=== PATIENT | male | born 1975 | race Caucasian/White ===

== ENCOUNTER → 2021-02-15 11:51 | Outpatient (BNVA) | payer OTHER, SELFPAY | PROVIDERS: PCP Internal Medicine; Referring Provider Internal Medicine; Visit Provider Surgery | DX: Z01.818 Encounter for other preprocedural examination (principal); L72.3 Sebaceous cyst; F17.200 Nicotine dependence, unspecified, uncomplicated; Z71.6 Tobacco abuse counseling | CPT/HCPCS: 99202 ==

== ENCOUNTER 2021-03-02 07:45 | Outpatient (REF) | payer OTHER, SELFPAY ==
[2021-03-02 07:51] VITALS: BP 117/68; PULSE 65; RESP 16; TEMP 36.4; O2SAT 98
[2021-03-02 07:52] VITALS: BMI 25.0
--- NOTE | 2021-03-02 07:59 | MHC.SHP ---
Pre-Procedural Eval Section A The patient is an INPATIENT: No Changes since office visit: Yes Patient answered all questions; No Cold of Flu in the past 2 weeks, No New Medical Problems and No Changes in Medication The History & Physical has been completed within 30 days and I have reviewed it.: Yes Section B Chief Complaint: Sebaceous cyst Allergies: Allergies Allergy/AdvReac Type Severity Reaction Status Date / Time No Known Allergies Allergy Mild N/A Verified 02/15/21 11:53 Plan Diagnosis/Plan: Unchanged I have reviewed the history and physical and performed a pertinent physical examination on my patient. No changes have occurred unless specified.
[2021-03-02 08:25] VITALS: BP 125/62; PULSE 63; RESP 16; O2SAT 98
--- NOTE | 2021-03-02 09:00 | W.PM.OPN ---
Operative Note Operative Note Date of Service: 03/02/21 Narrative: Preoperative diagnosis: Sebaceous cyst posterior left shoulder Postoperative diagnosis: Same Procedure: Excision is sebaceous cyst posterior left shoulder Surgeon: Mandeep Connell MD Sifting Operator: No physician Anesthesia: Local Indications for procedure: 45-year-old male presenting with an enlarging cyst of the posterior left shoulder Operative findings: None infected 2 cm sebaceous cyst of the posterior left shoulder Specimen: Sebaceous cyst posterior left shoulder Estimated blood loss: 2 mL Complications: None Procedure details: Patient was brought to the minor surgery suite placed in a prone position. After assuring the site of surgery and informed consent the patient's left shoulder was prepped with Betadine and draped in a sterile fashion. Local anesthesia consisting of 1% lidocaine with epinephrine was infiltrated circumferentially in a transverse fashion around the sebaceous cyst in the left posterior shoulder elliptical incision was then created with a scalpel carried out through subcutaneous tissue. The incision was carried down along the cyst wall in the cyst was completely excised. Cyst was sent to pathology for further examination. After assuring adequate hemostasis with light pressure the skin was reapproximated using interrupted 4-0 nylon sutures. Sterile dressings consisting of 3 x 3 gauze and Tegaderm were then applied. The patient tolerated the procedure well. Sponge, instrument, and needle counts were correct. The patient was discharged to home in stable condition.
== END 2021-03-02 07:46 | disposition home or self-care (01) ==
LOC: HO.MS 07:45
PROVIDERS: PCP Internal Medicine; Visit Provider Surgery
PROC: (CPT 11402; principal; 2021-03-02 08:00)
DX: L72.3 Sebaceous cyst (principal)
CPT/HCPCS: 11402; 88304

== ENCOUNTER 2022-01-17 15:35 | Outpatient (REF) | payer OTHER, SELFPAY ==
[2022-01-17 16:20] LABS: COVID-19 Test Negative (Negative); IDNOW Serial# 55D5AD1C
== END 2022-01-17 15:36 | disposition home or self-care (01) ==
LOC: HO.LAB 15:35
PROVIDERS: Visit Provider Internal Medicine
DX: Z20.822 Contact with and (suspected) exposure to COVID-19 (principal)
CPT/HCPCS: 87635; C9803

== ENCOUNTER 2024-08-31 02:30 | Emergency (ER) | payer OTHER, SELFPAY ==
[2024-08-31 02:42] VITALS: BP 121/79; PULSE 78; RESP 18; TEMP 36.3; O2SAT 99; BMI 23.3
[2024-08-31] MEDS: Acetaminophen 325 MG TABLET 975 MG PO (02:53)
--- NOTE | 2024-08-31 07:20 | ED.DENTAL ---
HPI - Dental/Oral General Chief complaint: Dental/Oral Stated complaint: broken tooth Time Seen by Provider: 08/31/24 07:08 Source: patient Mode of arrival: ambulatory Limitations: no limitations History of Present Illness ED Provider: CHRISSIE PAEZ PA-C HPI Narrative: 48-year-old male presents to the ED today for evaluation of dental pain x3 days. Patient reports broken tooth to left upper tooth (#10). He does not recall how he broke the tooth however since this time, he endorses constant pain to the area. Pain is radiating to his left ear. He has been taking Motrin at home with minimal relief. States he has not followed with a dentist in some time. Denies any drainage from the tooth. Denies fever, chills, jaw pain/ swelling. Denies known trauma. MD Complaint: tooth pain Related Data Previous Rx's ?Medication ?Instructions ?Recorded amoxicillin 875 mg-potassium 1 tab PO BID 7 days #14 tabs 08/31/24 clavulanate 125 mg tablet tramadol 50 mg tablet 50 mg PO Q8H PRN pain (scale score 08/31/24 4-6) #7 tabs Allergies Allergy/AdvReac Type Severity Reaction Status Date / Time No Known Allergies Allergy Mild N/A Verified 08/31/24 02:47 Review of Systems Review of Systems: Constitutional: No fever, chills, fatigue, night sweats, weight changes ENT/Mouth: No ear pain, hearing loss, nasal congestion, sinus pain, rhinorrhea, sore throat, +dental pain Eyes: No eye pain, swelling, redness, vision changes, discharge Cardio: No chest pain, palpitations, NYE, orthopnea, peripheral edema Pulm: No SOB, cough, sputum, wheezing, dyspnea, hemoptysis GI: No nausea, vomiting, hematemesis, abdominal pain, diarrhea, constipation, hematochezia, melena : No irregular bleeding, dysuria, frequency, urgency, hesitancy, hematuria, flank pain, urinary flow changes, urinary incontinence or retention MSK: No back pain, neck pain, joint pain, myalgias Skin: No lesions, rashes Neuro: No weakness, numbness, paresthesias, LOC, dizziness, headache Psych: No anxiety/panic, depression, SI/HI, AH/VH All other systems reviewed and are negative. [facility] Past Medical History Attestation statement: The following information was validated with the patient. Source: old records reviewed and nursing notes reviewed Medical History History of wrist sprain Surgical History History of appendectomy History of tonsillectomy Social History Social History Alcohol intake: never Advance Directives: No Advance Directives Information Provided: Yes Do you have a plan to hurt others: No Plan Physical Exam Vital Signs: Vital Signs: Last Vital Signs Temp 97.4 F 08/31/24 02:42 Pulse 78 08/31/24 02:42 Resp 18 08/31/24 02:42 BP 121/79 08/31/24 02:42 Pulse Ox 99 08/31/24 02:42 O2 Del Method Room Air 08/31/24 02:42 BMI result Body Mass Index 23.3 Vital signs stable, afebrile General: Well appearing, in no acute distress. Skin: Warm, dry, intact. No rashes or lesions. Head: Normocephalic, atraumatic. EENT: Hearing is intact b/l. B/l EACs and TMs intact. Conjunctiva clear. PERRLA. Moist mucous membranes.? > No facial edema. Tongue and lips wnl. multiple dental caries and poor dentition. left upper (#10) with localized periapical swelling to the buccal ginginva. No pointing. No active bleeding/ discharge. TTP. No palpable fluctuance. No edema to buccal mucosa. Posterior oropharynx without erythema/edema. Uvula midline. Controlling secretions and speaking in complete sentences. No submandublar or submental LAD. no anterior neck swelling. Cardiac: Chest wall symmetric. RRR Lungs: Normal respiratory effort without accessory muscle use Neuro: AOx3. Normal speech. Ambulating with steady gait. Psych: Appropriate mood and affect. Responds appropriately to questions. Course Course Course Narrative: Patient noted to have dental infection. There is no evidence of abscess that warrants drainage at this time. Will treat patient's pain and patient will be discharged home on Augmentin to ensure there is no worsening infection for follow-up with dentist. Patient advised to follow up with dentist this week. A referral has been provided. Patient has remained stable throughout ED visit today. I discussed worrisome signs and symptoms and when to return to the ED. All questions answered at this time. Patient is agreeable with disposition and stable for discharge. Medications Administered Discontinued Medications Generic Name Dose Route Start Last Admin Trade Name Guy PRN Reason Stop Dose Admin Acetaminophen 975 mg 08/31/24 02:48 08/31/24 02:53 Acetaminophen 325 Mg Tablet PO 08/31/24 02:49 975 mg ONCE ONE Administration Medical Decision Making Medical Decision Making MDM Narrative: 48-year-old male presents to the ED today for evaluation of dental pain x3 days. Vital signs stable, afebrile. Moist mucous membranes.?No facial edema. Tongue and lips wnl. multiple dental caries and poor dentition. left upper (#10) with localized periapical swelling to the buccal ginginva. No pointing. No active bleeding/ discharge. TTP. No palpable fluctuance. No edema to buccal mucosa. Posterior oropharynx without erythema/edema. Uvula midline. Controlling secretions and speaking in complete sentences. No submandublar or submental LAD. no anterior neck swelling. Differential includes dental/ periapical abscess/infection. Unlikely mono, herpes, sialadenitis, sialolithiasis, [employer], retropharyngeal abscess, deep neck infection, osteomyelitis, facial cellulitis/ abscess, lymphoma, ludwigs angina. Plan for pain control and discharge home with antibiotics and dentist follow up. Differential Diagnosis Differential Diagnoses: The differential diagnosis associated with the presentation includes as above. Admission/Observation Not indicated. External Record Review External record reviewed: Inpatient record Tests considered The following testing was considered but not selected: I considered obtaining a CT of the soft tissues neck however these is no evidence of ludwigs angina or concern for deep tissue infection. Not warranted at this time. Prescription Management I considered prescription management with: Pain Medication (Tramadol) and Antibiotic (Augmentin) Social Determinants Patient?s care significantly limited by Social Determinants of Health including: Other Social Determinant of Health Critical Care Time Critical Care Time Critical Care Time: No Discharge Plan Discharge Clinical Impression: Dental caries, Dental infection Patient Disposition: Home, Self-Care Instructions: Tooth Extraction (DC) Additional Instructions: You were evaluated in ED today for dental pain. You have a dental infection. Augmentin is an antibiotic that has been sent to your pharmacy for treatment. Take this as prescribed and do not skip any doses. Take this to completion or the infection may persist or worsen. On Augmentin, softer bowel movements are to be expected. Call your provider if you move your bowels more than 4 times a day, your bowel movements are almost all liquid, or you get a rash.? Take tylenol/ motrin at home as needed for pain. Tramadol is a pain medication that has been sent to your pharmacy for you to take for break-through pain. Use this with caution. YOU NEED TO FOLLOW UP WITH A DENTIST. You have been provided with a referral to [facility]. They are currently taking new clients. Call them to make an appointment. They will not call you. Return with new or worsening symptoms. In the case of an emergency call [phone]. [facility]: [phone] [address] [facility] [address] Prescriptions: New amoxicillin-pot clavulanate 875-125 mg tablet 1 tab PO BID 7 Days Qty: 14 0RF tramadol 50 mg tablet 50 mg PO Q8H PRN (Reason: pain (scale score 4-6)) Qty: 7 0RF Referrals: Jania Vo MD [Primary Care Provider] - Print Language: French
[2024-08-31] MEDS: Ketorolac Tromethamine 30 MG/ML VIAL IM (07:44)
[2024-08-31 08:00] VITALS: BP 121/79; PULSE 78; RESP 18; TEMP 36.3; O2SAT 99
== END 2024-08-31 08:01 | disposition home or self-care (01) ==
PROVIDERS: Emergency Provider Emergency Medicine; PCP Internal Medicine
DX: K03.81 Cracked tooth (principal); K04.7 Periapical abscess without sinus
CPT/HCPCS: 96372; 99283; 99284; J1885

== ENCOUNTER 2024-09-06 22:45 | Emergency (ER) | payer OTHER, SELFPAY ==
[2024-09-06 23:22] VITALS: BP 121/77; PULSE 87; RESP 20; TEMP 37; O2SAT 99; BMI 23.6
--- NOTE | 2024-09-07 02:45 | ED.GENADULT ---
HPI - General Adult General Chief complaint: Dental/Oral Stated complaint: tooth pain Time Seen by Provider: 09/07/24 02:44 History of Present Illness ED Provider: Ben BARRERA narrative: The patient has been having problems with dental pain since his tooth #9 Broke about 2 weeks ago. He was here the other day and received a prescription for Augmentin. He has finished that prescription and has not yet seen a dentist. He has ongoing pain. No fever. Related Data Previous Rx's ?Medication ?Instructions ?Recorded amoxicillin 875 mg-potassium 1 tab PO BID 7 days #14 tabs 08/31/24 clavulanate 125 mg tablet tramadol 50 mg tablet 50 mg PO Q8H PRN pain (scale score 08/31/24 4-6) #7 tabs amoxicillin 875 mg-potassium 1 tab PO BID #20 tabs 09/07/24 clavulanate 125 mg tablet ibuprofen 400 mg tablet 400 mg PO Q6H PRN pain #14 tabs 09/07/24 tramadol 50 mg tablet 50 mg PO Q6H PRN pain #10 tabs 09/07/24 Allergies Allergy/AdvReac Type Severity Reaction Status Date / Time No Known Allergies Allergy Mild N/A Verified 09/06/24 23:24 Review of Systems Review of Systems: Yes all other systems are reviewed and are negative PMFSH Past Medical History Medical History History of wrist sprain Surgical History History of appendectomy History of tonsillectomy Social History Social History Alcohol intake: never Advance Directives: No Advance Directives Information Provided: Yes Do you have a plan to hurt others: No Plan Physical Exam ED Vital Signs: Vital Signs - 24 hr 09/06/24 23:22 Temperature 98.6 F Pulse Rate 87 Respiratory Rate 20 Blood Pressure 121/77 Pulse Oximetry 99 Oxygen Delivery Method Room Air BMI result Body Mass Index 23.6 Const Other: The patient is awake and alert. He does not seem in acute distress. HENMT Other: The face is symmetrical. There is no soft tissue swelling to the face. There is no trismus. The patient has a broken tooth 9.. There is no significant soft tissue swelling in the gingiva above the 2s. No drainable collection. Eyes General: appearance normal, both eyes and all related structures Neck Other: No cervical adenopathy, good range of motion of neck. Resp Effort & Inspection: normal respiratory effort Auscultation: clear to auscultation bilaterally Cardio Rate: regular rate Rhythm: regular rhythm Heart sounds: S1 normal heart sound present and S2 normal heart sound present Skin Other: skin is dry and unremarkable. Neuro Other: The patient is awake and alert with a normal mental status. Cranial nerves are intact. He moves his extremities normally. He is neurologically intact Extrem Other: no peripheral edema Medications Administered Discontinued Medications Generic Name Dose Route Start Last Admin Trade Name Freq PRN Reason Stop Dose Admin Amoxicillin/Clavulanate Potassium 875 mg 09/07/24 02:49 09/07/24 03:01 Amoxicillin/Potassium Clav 875 Mg Tablet PO 09/07/24 02:50 875 mg ONCE ONE Administration Ketorolac Tromethamine 30 mg 09/07/24 02:49 09/07/24 03:01 Ketorolac Tromethamine 30 Mg/Ml Vial IM 09/07/24 02:50 30 mg ONCE ONE Administration Medical Decision Making Medical Decision Making MDM Narrative: the patient is a 48-year-old male with a painful broken tooth #9. he will be placed on a course of Augmentin. Prescriptions for pain have been sent for ibuprofen and tramadol as well. He was advised he needs to see a dentist. Discharge Plan Discharge Clinical Impression: Pain, dental Patient Disposition: Home, Self-Care Instructions: Toothache (ED) Additional Instructions: I would continue taking the antibiotic. I have sent a new prescription to your pharmacy. Please take this 2 times a day. The most important thing you need to do is see a dentist. Only a dentist can give you a well-informed opinion about what to do next. You may use 2 extra-strength acetaminophen (Tylenol) up to 3 times a day as needed for pain. I have also sent a prescription for ibuprofen that you may use every 6 hours. In addition I have sent a prescription for pain medication called tramadol that you may use only when you are not driving or operating machinery or doing anything else that requires your full attention. Again the most important thing you need to do is try to see a dentist. Return to the emergency room if you develop fevers or other concerning symptoms. Prescriptions: New amoxicillin-pot clavulanate 875-125 mg tablet 1 tab PO BID Qty: 20 0RF ibuprofen 400 mg tablet 400 mg PO Q6H PRN (Reason: pain) Qty: 14 0RF tramadol 50 mg tablet 50 mg PO Q6H PRN (Reason: pain) Qty: 10 0RF No Action amoxicillin-pot clavulanate 875-125 mg tablet 1 tab PO BID 7 Days Qty: 14 0RF tramadol 50 mg tablet 50 mg PO Q8H PRN (Reason: pain (scale score 4-6)) Qty: 7 0RF Interventions: ED Discharge Assessment Last Done: 09/07/24 03:13 Discharge Date/Time: 09/07/24 03:14 Print Language: Azerbaijani
[2024-09-07] MEDS: Ketorolac Tromethamine 30 MG/ML VIAL IM (03:01)
[2024-09-07] MEDS: Amoxicillin/Potassium Clav 875 MG TABLET PO (03:01)
[2024-09-07 03:06] VITALS: BP 133/61; PULSE 73; RESP 16; TEMP 36.9; O2SAT 100
[2024-09-07 03:13] VITALS: BP 133/61; PULSE 73; RESP 16; TEMP 36.9; O2SAT 100
== END 2024-09-07 03:14 | disposition home or self-care (01) ==
PROVIDERS: Emergency Provider Emergency Medicine; PCP Internal Medicine
DX: K08.89 Other specified disorders of teeth and supporting structures (principal)
CPT/HCPCS: 96372; 99283; 99284; J1885

== ENCOUNTER → 2024-10-27 00:13 | Outpatient (BNV) | payer OTHER, SELFPAY | PROVIDERS: PCP Internal Medicine; Visit Provider Radiology Diagnostic Radiology | DX: M25.511 Pain in right shoulder (principal) | CPT/HCPCS: 73030 ==

== ENCOUNTER 2024-10-27 23:46 | Emergency (ER) | payer OTHER, SELFPAY ==
--- NOTE | ~2024-10-27 | XR_ITS ---
CLINICAL HISTORY: right shoulder pain limited movement 3 view right shoulder Comparison: None Findings: No fractures or dislocations. No significant arthritic change. No erosions. No radiopaque foreign body. IMPRESSION: 1. No acute findings This document has been electronically signed by: Dominic Frias MD on 10/28/2024 01:08:00
[2024-10-27 23:51] VITALS: BP 96/43; PULSE 74; RESP 16; TEMP 36.8; O2SAT 97; BMI 22.1
--- NOTE | 2024-10-28 03:10 | ED.EXTPRO ---
HPI - Extremity Problem General Chief complaint: Extremity Problem Stated complaint: right shoulder pain Time Seen by Provider: 10/28/24 02:48 Source: patient Limitations: no limitations History of Present Illness ED Provider: Kaur Dunaway PA-C HPI Narrative: 48-year-old male presents with right shoulder pain. Patient states he fell on the ice last week, he has had ongoing discomfort since. Pain worse with range of motion in particular performing lateral raise. Related Data Previous Rx's ?Medication ?Instructions ?Recorded amoxicillin 875 mg-potassium 1 tab PO BID 7 days #14 tabs 08/31/24 clavulanate 125 mg tablet tramadol 50 mg tablet 50 mg PO Q8H PRN pain (scale score 08/31/24 4-6) #7 tabs amoxicillin 875 mg-potassium 1 tab PO BID #20 tabs 09/07/24 clavulanate 125 mg tablet ibuprofen 400 mg tablet 400 mg PO Q6H PRN pain #14 tabs 09/07/24 tramadol 50 mg tablet 50 mg PO Q6H PRN pain #10 tabs 09/07/24 meloxicam 15 mg tablet 15 mg PO DAILY #7 tabs 10/28/24 Allergies Allergy/AdvReac Type Severity Reaction Status Date / Time No Known Allergies Allergy Mild N/A Verified 10/27/24 23:55 Review of Systems Review of Systems: Yes all other systems are reviewed and are negative Constitutional: Constitutional: Denies fatigue and Denies fever(s) Cardiovascular: Cardiovascular: Denies chest pain Musculoskeletal: Musculoskeletal: Reports arthralgias and Denies joint swelling Endocrine: Endocrine: Denies fatigue PMFSH Past Medical History Attestation statement: The following information was validated with the patient. Medical History History of wrist sprain Surgical History History of appendectomy History of tonsillectomy Social History Social History Alcohol intake: never Advance Directives: No Advance Directives Information Provided: Yes Do you have a plan to hurt others: No Plan Physical Exam Vital Signs: Vital Signs: Last Vital Signs Temp 98.2 F 10/27/24 23:51 Pulse 74 10/27/24 23:51 Resp 16 10/27/24 23:51 BP 96/43 L 10/27/24 23:51 Pulse Ox 97 10/27/24 23:51 O2 Del Method Room Air 10/27/24 23:51 BMI result Body Mass Index 22.1 Const: Other: Alert appears older than stated age Orientation/consciousness: patient oriented x3 Resp: Effort & Inspection: normal respiratory effort Cardio: Other: Normal peripheral perfusion Skin: Other: Warm dry no rash Neuro: General: patient oriented x3, no focal motor deficits and CN's II-XI intact bilaterally Extrem: Other: Full range of motion no deformity Psych: Other: Cooperative Medical Decision Making Medical Decision Making MDM Narrative: 48-year-old male presents with right shoulder pain. Patient states he fell on the ice last week, he has had ongoing discomfort since. Pain worse with range of motion in particular performing lateral raise. No chronic issues History: Per patient I have considered the following differential diagnoses: Fracture, dislocation, sprain Plan: X-ray obtained, unremarkable. We will send with home Care instructions. I have independently reviewed the following tests: X-ray right shoulder:Comparison: None Findings: No fractures or dislocations. No significant arthritic change. No erosions. No radiopaque foreign body. IMPRESSION: 1. No acute findings This document has been electronically signed by: Dominic Frias MD on 10/28/2024 01:08:00 Discharge Plan Discharge Clinical Impression: Other sprain of right shoulder joint, initial encounter Patient Disposition: Home, Self-Care Instructions: Shoulder Sprain (ED) Additional Instructions: The x-ray was normal of the shoulder, meeting there was no fracture or dislocation. You have a sprain. See home care instructions. Use the meloxicam as needed for discomfort. Take it with food. Follow up with your primary care provider as needed. Prescriptions: New meloxicam 15 mg tablet 15 mg PO DAILY Qty: 7 0RF No Action amoxicillin-pot clavulanate 875-125 mg tablet 1 tab PO BID 7 Days Qty: 14 0RF tramadol 50 mg tablet 50 mg PO Q8H PRN (Reason: pain (scale score 4-6)) Qty: 7 0RF amoxicillin-pot clavulanate 875-125 mg tablet 1 tab PO BID Qty: 20 0RF ibuprofen 400 mg tablet 400 mg PO Q6H PRN (Reason: pain) Qty: 14 0RF tramadol 50 mg tablet 50 mg PO Q6H PRN (Reason: pain) Qty: 10 0RF Stand Alone Forms: Work/School Release Print Language: Hong Konger
[2024-10-28] MEDS: Ibuprofen 600 MG TABLET PO (03:36)
[2024-10-28] MEDS: Acetaminophen 325 MG TABLET 975 MG PO (03:37)
[2024-10-28 03:41] VITALS: BP 89/44; PULSE 60; RESP 16; TEMP 36.8; O2SAT 97
[2024-10-28 03:43] VITALS: BP 89/44; PULSE 60; RESP 16; TEMP 36.8; O2SAT 97
== END 2024-10-28 03:45 | disposition home or self-care (01) ==
PROVIDERS: Emergency Provider Emergency Medicine; PCP Internal Medicine
DX: S43.401A Unspecified sprain of right shoulder joint, initial encounter (principal); W00.0XXA Fall on same level due to ice and snow, initial encounter; M25.511 Pain in right shoulder; Y93.9 Activity, unspecified; Y92.9 Unspecified place or not applicable; Y99.9 Unspecified external cause status
CPT/HCPCS: 73030; 99283; 99284

== ENCOUNTER 2024-12-22 15:42 | Inpatient (IN) | payer OTHER, SELFPAY ==
--- NOTE | ~2024-12-22 | XR_ITS ---
EXAMINATION: XR CHEST CLINICAL INFORMATION: elevated WBC count COMPARISON: None available. TECHNIQUE: Frontal view of the chest was obtained. FINDINGS: Patchy opacity right upper hemithorax. No pleural effusion. No pneumothorax. No hyperinflation. Cardiomediastinal silhouette size is normal. Osseous structures are intact. XR/XR chest 1V IMPRESSION: Pneumonia, right upper lung lobe. Recommend follow-up until resolution, underlying lesion/malignancy cannot be excluded. Electronically signed by: Shon Worley MD 12/24/2024 08:04 AM EDT
[2024-12-22 15:46] VITALS: BP 120/73; PULSE 100; RESP 19; TEMP 36.6; O2SAT 97; BMI 21.3
--- NOTE | 2024-12-22 15:46 | ED.GENADULT ---
HPI - General Adult General Chief complaint: Psychiatric Symptoms Stated complaint: mental health fears for safety Time Seen by Provider: 12/22/24 16:15 Source: patient Limitations: no limitations History of Present Illness ED Provider: Kaur Dunaway PA-C HPI narrative: 49-year-old male with a history of polysubstance abuse, anxiety and depression, Who presents with HI. Patient states he has been having paranoid thoughts of people following him . Patient was currently homeless, he has been hiding in warehouses and in the encarnacion . When asked if there was someone specific that he would harm, he states no, I kind a just want to hurt someone so I get arrested . Patient admits to using crack and heroin today. Patient also abuses alcohol, he drank 7 nips of fireball earlier today, he drinks on a daily basis. The patient has experienced alcohol withdrawal in the past with seizure activity. Denies SI. Related Data Home Medications ?Medication ?Instructions ?Recorded ?Confirmed methadone 10 mg/mL oral concentrate 90 mg PO DAILY 12/22/24 12/22/24 Allergies Allergy/AdvReac Type Severity Reaction Status Date / Time No Known Allergies Allergy Mild N/A Verified 12/22/24 15:48 Review of Systems Review of Systems: Yes all other systems are reviewed and are negative Constitutional: Constitutional: Denies fatigue and Denies fever(s) Cardiovascular: Cardiovascular: Denies chest pain Respiratory: Respiratory: Denies cough Gastrointestinal: Gastrointestinal: Denies abdominal pain Psychiatric: Psychiatric: Reports paranoia and Reports homicidal ideation Endocrine: Endocrine: Denies fatigue PMFSH Past Medical History Attestation statement: The following information was validated with the patient. Medical History History of wrist sprain Surgical History History of appendectomy History of tonsillectomy Social History Social History Alcohol intake: never Substance Use Type: Marijuana Advance Directives: No Advance Directives Information Provided: Yes Do you have a plan to hurt others: No Plan Physical Exam ED Vital Signs: Vital Signs - 24 hr 12/22/24 15:46 Temperature 98 F Pulse Rate 100 Respiratory Rate 19 Blood Pressure 120/73 Pulse Oximetry 97 Oxygen Delivery Method Room Air BMI result Body Mass Index 21.3 Const Other: Alert Orientation/consciousness: patient oriented x3 Resp Effort & Inspection: normal respiratory effort Cardio Other: normal peripheral perfusion Skin Other: warm dry no rash Neuro General: patient oriented x3, gait normal, no focal motor deficits and CN's II-XI intact bilaterally Psych Other: appears nervous, but is cooperative in the emergency department Course Course Course Narrative: RME, this is a rapid medical exam performed by José Miguel Hernandez please refer to primary provider for complete H&P- 49 year old male presents for evaluation of paranoia and polysubstance abuse, He reports that he has been homeless for the last 3 or 4 months. He is not currently taking any meds. Denies SI. Plan for medical clearance and care team evaluation. Medications Administered Discontinued Medications Generic Name Dose Route Start Last Admin Trade Name Freq PRN Reason Stop Dose Admin Lorazepam 2 mg 12/22/24 15:55 12/22/24 16:18 Lorazepam 1 Mg Tablet PO 12/22/24 15:56 2 mg ONCE ONE Administration Medical Decision Making Medical Decision Making [facility] Narrative: 49-year-old male with a history of polysubstance abuse, anxiety and depression, Who presents with HI. Patient states he has been having paranoid thoughts of people following him . Patient was currently homeless, he has been hiding in warehouses and in the encarnacion . When asked if there was someone specific that he would harm, he states no, I kind a just want to hurt someone so I get arrested . Patient admits to using crack and heroin today. Patient also abuses alcohol, he drank 7 nips of fireball earlier today, he drinks on a daily basis. The patient has experienced alcohol withdrawal in the past with seizure activity. Denies SI. problem: Polysubstance abuse, alcohol use disorder, anxiety depression History: Per patient I have considered the following differential diagnoses: Decompensated psychiatric illness, drug/ alcohol intoxication, SI, HI Plan: I spoke with the care team, they had assessed him prior to his medical clearance being completed, he has a dual bed search. I have independently reviewed the following tests: Labs: Leukocytosis, stable anemia, no electrolyte abnormality, ethanol negative, drug screen pending, given significant leukocytosis, I am going to add on a viral panel. He himself has no symptoms. The leukocytosis could be reactive from his drug use. Lab Data 12/22/24 18:10 12/22/24 18:10 Labs: Lab Results 12/22/24 Range/Units 18:10 WBC 26.7 H (4.8-10.8) X10*3/uL RBC 3.33 L (4.60-5.80) X10*6/uL Hgb 9.6 L (14.0-18.0) g/dl Hct 30.0 L (42.0-52.0) % MCV 90.1 (80.0-98.0) fL MCH 28.8 (27.0-33.0) pg MCHC 32.0 (31.0-36.0) g/dl RDW 13.5 (11.0-16.0) % Plt Count 340 (160-400) X10*3/uL MPV 9.6 (9.4-12.4) fL Immature Gran % (Auto) Cancelled Neut % (Auto) Cancelled Lymph % (Auto) Cancelled Piute % (Auto) Cancelled Eos % (Auto) Cancelled Baso % (Auto) Cancelled Lymph # (Auto) Cancelled [place] # (Auto) Cancelled Eos # (Auto) Cancelled Baso # (Auto) Cancelled Abs Immat Gran (auto) Cancelled Absolute Neuts (auto) Cancelled Absolute Nucleated RBC 0.000 (0.0-0.012) X10*3/uL Nucleated RBC % (auto) 0.0 (0.0-0.2) /100WBC Neutrophils % (Manual) 23 L (45-73) % Band Neutrophils % 0 L (3-5) % Lymphocytes % (Manual) 69 H (20-40) % Atypical Lymphs % (Man) 8 H (0-6) % Abs Neuts (Manual) 6.1 (2.0-8.3) X10*3/uL Lymphocytes # (Manual) 18.4 H (1.2-4.9) X10*3/uL Atyp Lymphs # (Manual) 2.1 x10*3/uL Platelet Estimate NORMAL (NORMAL) Plt Morphology Comment NORMAL RBC Morphology NORMAL Smear Tech's Comments MANUAL DIFF Sodium 140 (135-145) mmol/L Potassium 4.6 (3.3-5.1) mmol/L Chloride 106 (96-108) mmol/L Carbon Dioxide 26 (22-29) mmol/L Anion Gap 13 (12-20) BUN 16 (9-16) mg/dL Creatinine 0.66 (0.5-1.4) mg/dL Estim Creat Clear Calc 118.9 Estimated GFR > 60 Random Glucose 95 (60-115) mg/dL Calcium 8.5 (8.4-10.2) mg/dL Total Bilirubin 0.3 (0.0-1.0) mg/dL AST 13 (5-37) U/L ALT < 6 (0-40) U/L Alkaline Phosphatase 63 (39-117) U/L Total Protein 6.1 L (6.5-8.0) g/dL Albumin 3.2 L (3.5-5.0) g/dL Salicylates < 5.0 L (15-30) mg/dL Acetaminophen < 3 (<30) mcg/mL Ethyl Alcohol < 10 mg/dL Discharge Plan Discharge Clinical Impression: Homicidal ideation Patient Disposition: Still a Patient Prescriptions: No Action methadone 10 mg/mL Concentrate 90 mg PO DAILY Rx Instructions: confirmed with [facility] Uma GARZA Interventions: Sharon-Suicide Risk Severity Scale Last Done: 12/22/24 19:25 Print Language: Luxembourger
--- NOTE | 2024-12-22 15:47 | ECG_ITS ---
Test Reason : QT CHECK Blood Pressure : */* mmHG Vent. Rate : 74 BPM Atrial Rate : 74 BPM P-R Int : 142 ms QRS Dur : 90 ms QT Int : 424 ms P-R-T Axes : 70 64 64 degrees QTcB Int : 470 ms Normal sinus rhythm Normal ECG No previous ECGs available Referred By: Simon Hernandez Electronically Signed By: GALINA COTA MD
[2024-12-22] MEDS: LORazepam 1 MG TABLET 2 MG PO (16:18)
--- NOTE | 2024-12-22 17:58 | HE.PHANOTE ---
METHADONE CONFIRMATION SHEET PATIENT TAKES 90 MG OF METHADONE FROM [facility]. LAST DOSE 12/22 @ 5042
[2024-12-22 18:20] LABS: Hemoglobin 9.6 g/dl (14.0-18.0); Mean Corpuscular Hemoglobin 28.8 pg (27.0-33.0); Mean Corpuscular Volume 90.1 fL (80.0-98.0); Mean Platelet Volume 9.6 fL (9.4-12.4); Platelet Count 340 X10*3/uL (160-400); Red Blood Count 3.33 X10*6/uL (4.60-5.80); Red Cell Distribution Width 13.5 % (11.0-16.0); White Blood Count 26.7 X10*3/uL (4.8-10.8)
[2024-12-22 18:38] LABS: Acetaminophen LAB < 3 mcg/mL (<30); Alanine Aminotransferase < 6 U/L (0-40); Albumin Level 3.2 g/dL (3.5-5.0); Alkaline Phosphatase 63 U/L (39-117); Anion Gap 13 (12-20); Aspartate Amino Transferase 13 U/L (5-37); Bilirubin Total 0.3 mg/dL (0.0-1.0); Blood Urea Nitrogen 16 mg/dL (9-16); Calcium 8.5 mg/dL (8.4-10.2); Carbon Dioxide 26 mmol/L (22-29); Chloride 106 mmol/L (96-108); Creatinine Clr Calc Pharmacy 118.9; Estimated Glomerular Filt Rate > 60; Ethanol < 10 mg/dL; Glucose Random 95 mg/dL (60-115); Potassium 4.6 mmol/L (3.3-5.1); Salicylate < 5.0 mg/dL (15-30); Sodium 140 mmol/L (135-145); Total Protein 6.1 g/dL (6.5-8.0)
[2024-12-22 18:43] LABS: SLIDE REVIEW MANUAL DIFF
[2024-12-22 19:18] LABS: Atypical Lymph Absolute Manual 2.1 x10*3/uL; Atypical Lymphs Percent Manual 8 % (0-6); Lymphocytes Absolute Manual 18.4 X10*3/uL (1.2-4.9); Lymphocytes Percent Manual 69 % (20-40); Neutrophils Percent Manual 23 % (45-73)
[2024-12-22 19:19] LABS: Band Neutrophils Percent 0 % (3-5); Neutrophils Absolute Manual 6.1 X10*3/uL (2.0-8.3); RBC Morphology NORMAL
[2024-12-22 19:20] LABS: Platelet Estimate NORMAL (NORMAL); Platelet Morphology Comment NORMAL
--- NOTE | 2024-12-22 19:24 | PC.NURSE ---
patient appears to remain at rest presently, respirations are even and unlabored patient appears in no distress
[2024-12-22 19:52] LABS: Appearance Urine Clear; Color Urine Yellow; Glucose Urine UA Negative (Negative); Leukocyte Esterase Urine Trace (Negative); Nitrite Urine Negative (Negative); PH 5.5 (5.0-9.0); Specific Gravity - Urine 1.025 (1.005-1.025); UMIC TRIGGER UACC YES; Urine Blood Negative (Negative); Urine Ketones Trace mg/dL (Negative); Urine Protein Negative (Neg-Trace)
[2024-12-22 19:56] LABS: Bacteria Urine None Seen (None Seen); Hyaline Casts Urine 0-2 /LPF (0-2); RBC Urine 0-2 /HPF (0-2); UACC Culture Trigger YES
[2024-12-22 20:00] LABS: Amphetamine Screen Urine Not Detected (Not Detect); Barbiturates, Urine Not Detected (Not Detect); Benzodiazepines Screen Urine Not Detected (Not Detect); Buprenorphine Scr Not Detected (Not Detect); Cannabinoid Screen Urine POSITIVE (Not Detect); Cocaine Screen Urine POSITIVE (Not Detect); Fentanyl, urine POSITIVE (Not Detect); Methadone Screen, Urine Positive (Not Detect); Opiate Screen Urine POSITIVE (Not Detect); Oxycodone Screen Urine Not Detected (Not Detect); Phencyclidine Screen Urine Not Detected (Not Detect)
[2024-12-22 21:07] LABS: Influenza A PCR NEGATIVE (Negative); Influenza B PCR NEGATIVE (Negative); Resp Syncy Virus RNA Qual PCR NEGATIVE (Negative); SARS COV2 PCR INHOUSE NEGATIVE (Negative)
[2024-12-23 01:30] VITALS: BP 100/54; PULSE 74; RESP 18; TEMP 36.9; O2SAT 98
[2024-12-23] MEDS: methADONE HCl 20 MG/2 ML ORAL.CONC 90 MG PO (10:09)
--- NOTE | 2024-12-23 10:14 | PC.NURSE ---
patient sleeping rr equal/non labored, woke to verbal stimulus, medicated with methadone per order, plan of care ongoing.
--- NOTE | 2024-12-23 10:20 | PC.NURSE ---
psych admission requesting to have the patients cbc redrawn, this nurse placed an new order per their request.
--- NOTE | 2024-12-23 10:31 | PC.NURSE ---
cbc redrawn per request
[2024-12-23 10:38] LABS: Hematocrit 33.2 % (42.0-52.0); Hemoglobin 10.4 g/dl (14.0-18.0); Mean Corpuscular HGB Conc 31.3 g/dl (31.0-36.0); Mean Corpuscular Hemoglobin 28.3 pg (27.0-33.0); Mean Corpuscular Volume 90.2 fL (80.0-98.0); Mean Platelet Volume 9.5 fL (9.4-12.4); Platelet Count 344 X10*3/uL (160-400); Red Blood Count 3.68 X10*6/uL (4.60-5.80); Red Cell Distribution Width 13.6 % (11.0-16.0); White Blood Count 28.8 X10*3/uL (4.8-10.8)
[2024-12-23 11:32] LABS: Band Neutrophils Percent 2 % (3-5); Lymphocytes Absolute Manual 17.9 X10*3/uL (1.2-4.9); Lymphocytes Percent Manual 62 % (20-40); Monocytes Absolute Manual 0.9 X10*3/uL (0.1-1.2); Monocytes Percent Manual 3 % (2-11); Neutrophils Absolute Manual 10.1 X10*3/uL (2.0-8.3); Neutrophils Percent Manual 33 % (45-73)
[2024-12-23 11:33] LABS: Smudge Cells PRESENT
[2024-12-23 11:37] LABS: Platelet Estimate NORMAL (NORMAL); RBC Morphology NORMAL
[2024-12-23 11:38] LABS: Platelet Morphology Comment NORMAL
--- NOTE | 2024-12-23 11:57 | PHA.MEDREC ---
Addendum entered by Jayant Carpenter RP 12/23/24 12:27: Reviewed by [facility] Original Note: Pharmacy Consult ? Medication Reconciliation Pharmacy reviewed med rec done by nursing. Spoke with patient and he confirmed he is only taking Methadone and confirmed he takes 90mg daily of that and nothing else at this time.
[2024-12-23] MEDS: Thiamine HCL 100 MG TABLET PO (15:12)
[2024-12-23 15:13] VITALS: BP 101/61; PULSE 62; RESP 16; TEMP 37.2; O2SAT 96
[2024-12-23] MEDS: LORazepam 1 MG TABLET PO (16:39)
--- NOTE | 2024-12-23 16:39 | PC.NURSE ---
patients additional labs drawn, pt ciwa performed pts ciwa was 7, pt medicated with ativan per order
[2024-12-23 17:00] LABS: Monotest Negative (Negative)
[2024-12-23 22:16] VITALS: BP 96/63; PULSE 79; RESP 16; TEMP 37.1; O2SAT 97
--- NOTE | 2024-12-23 22:22 | PC.NURSE ---
Yancy PALMER made aware of BP, pt does not endorse sx states his baseline is lower BP. pt eating crackers, encouraged to drink more water. ciwa 0. nad.
[2024-12-24] MEDS: LORazepam 1 MG TABLET PO ×3 (06:00→21:12)
--- NOTE | 2024-12-24 06:00 | PC.NURSE ---
ciwa 7, prn given per nov. pt appears in nad. resting comfortably.
--- NOTE | 2024-12-24 07:26 | PC.NURSE ---
ASSUMED CARE OF THIS PT, SLEEPING IN NAD AT THIS TIME, RESP EVEN, NONLABOURED.
[2024-12-24 08:02] LABS: HIV AB/AG Nonreactive (Nonreactive); HIV Num 1 0.07 S/CO (0.00-0.99)
[2024-12-24 08:04] LABS: Basophils Absolute Auto 0.1 X10*3/uL (0.0-0.2); Basophils Percent Auto 0.3 % (0-2); Eosinophils Absolute Auto 0.1 X10*3/uL (0.0-0.4); Eosinophils Percent Auto 0.2 % (0-4); Hematocrit 32.8 % (42.0-52.0); Hemoglobin 10.6 g/dl (14.0-18.0); Imm Gran Abs Auto 0.13 X10*3/uL (0.00-0.03); Imm Gran Pct Auto 0.5 % (0.0-0.4); Lymphocytes Percent Auto 58.2 % (20-40); MANUAL DIFF FLAG SCAN; Mean Corpuscular HGB Conc 32.3 g/dl (31.0-36.0); Mean Corpuscular Hemoglobin 28.7 pg (27.0-33.0); Mean Corpuscular Volume 88.9 fL (80.0-98.0); Mean Platelet Volume 9.6 fL (9.4-12.4); Monocytes Absolute Auto 0.6 X10*3/uL (0.1-1.2); Monocytes Percent Auto 2.1 % (2-11); Neutrophils Absolute Auto 10.8 x10*3/uL (2.0-8.3); Neutrophils Percent Auto 38.7 % (45-73); Platelet Count 308 X10*3/uL (160-400); Red Blood Count 3.69 X10*6/uL (4.60-5.80); Red Cell Distribution Width 13.5 % (11.0-16.0); SCAN SMEAR FLAG 1; White Blood Count 27.8 X10*3/uL (4.8-10.8)
[2024-12-24 08:05] VITALS: BP 95/57; PULSE 84; RESP 16; TEMP 37; O2SAT 99
[2024-12-24 08:06] LABS: Lymphocytes Absolute Auto 16.2 X10*3/uL (1.2-4.9)
[2024-12-24 08:17] LABS: C Reactive Protein 3.75 mg/dL (< or = 0.50)
--- NOTE | 2024-12-24 08:36 | PC.NURSE ---
Move to main ED for further workup, tx of pne. sitter at bedside. pt aware of plan for care, agreeable.
[2024-12-24 08:39] LABS: SLIDE REVIEW VERIFIED
[2024-12-24 08:41] LABS: Erythrocyte Sedimentation Rate 86 MM/HR (0-15)
[2024-12-24] MEDS: cefTRIAXone sodium 1 GM VIAL IVPUSH (08:45)
[2024-12-24] MEDS: Thiamine HCL 100 MG TABLET PO (08:45)
[2024-12-24] MEDS: 0.9 % Sodium Chloride 1,000 ML 999 ML IV (08:45)
[2024-12-24] MEDS: methADONE HCl 20 MG/2 ML ORAL.CONC 90 MG PO (08:47)
[2024-12-24] MEDS: Azithromycin 500 MG in 0.9 % Sodium Chloride 250 ML 125 MG IV (08:58)
[2024-12-24 09:02] LABS: Lactic Acid 1.1 mmol/L (0.5-2.0)
--- NOTE | 2024-12-24 09:06 | PC.NURSE ---
pt brought out from the pod after CXR and repeat labs. IV started, lactic drawn. Fluids and abx infusing. pt has no complaints. plan to monitor vitals
[2024-12-24 12:23] VITALS: BP 106/57; PULSE 72; RESP 16; TEMP 36.8; O2SAT 97
[2024-12-24] MEDS: Folic Acid 1 MG TABLET PO (14:28)
[2024-12-24 14:46] LABS: Alanine Aminotransferase < 6 U/L (0-40); Albumin Level 3.2 g/dL (3.5-5.0); Alkaline Phosphatase 62 U/L (39-117); Anion Gap 7 (12-20); Aspartate Amino Transferase 13 U/L (5-37); Bilirubin Total 0.2 mg/dL (0.0-1.0); Blood Urea Nitrogen 14 mg/dL (9-16); Calcium 8.7 mg/dL (8.4-10.2); Carbon Dioxide 30 mmol/L (22-29); Chloride 104 mmol/L (96-108); Creatinine Clr Calc Pharmacy 115.4; Estimated Glomerular Filt Rate > 60; Glucose Random 101 mg/dL (60-115); Potassium 4.4 mmol/L (3.3-5.1); Sodium 137 mmol/L (135-145); Total Protein 6.3 g/dL (6.5-8.0)
[2024-12-24 16:13] VITALS: BP 104/69; PULSE 98; RESP 16; TEMP 36.7; O2SAT 99; BMI 21.2
--- NOTE | 2024-12-24 18:04 | PC.ADMIT ---
Lukasz is a 49yr old male admitted [place] [facility] where he self presented with feelings of paranoia, feeling unsafe, and withdrawal symptoms. Lukasz reports he is scared for his safety, feels he is being followed, and unsure how he will behave in the community. He denies AVH.? He goes on to report being homeless for the last 4months when he and his 2 brothers lost their housing. He reports drinking and utilizing heroin and crack cocaine. He uses [facility] on [facility] to receive his daily methadone of 90mg which he reports ?needs to be increased because I wake up every night at 3am detoxing?.? Pt has hx of ETOH withdrawal symptoms and has CIWA ordered Q4.? He denies any current medications or providers and declined to sign any releases at this time. Active smoker, consult placed. NRT ordered, and flu shot requested skin/safety check unremarkable, pt oriented to unit and admission complete.?Pt signed a CV and is on 15min checks for safety
[2024-12-24 20:00] VITALS: BP 92/52; PULSE 95; TEMP 37.7; O2SAT 97
[2024-12-24 21:00] VITALS: BP 99/50; PULSE 68; TEMP 36.5; O2SAT 97
[2024-12-24] MEDS: Doxycycline Monohydrate 100 MG CAPSULE PO (21:09)
[2024-12-24] MEDS: Amoxicillin/Potassium Clav 875 MG TABLET PO (21:10)
[2024-12-24] MEDS: Acetaminophen 325 MG TABLET 650 MG PO (21:10)
[2024-12-24] MEDS: traZODone HCL 50 MG TABLET PO (21:11)
[2024-12-24] MEDS: Gabapentin 300 MG CAPSULE PO (21:11)
[2024-12-25 01:20] VITALS: BP 93/54; PULSE 60; TEMP 36.3; O2SAT 97
[2024-12-25] MEDS: traZODone HCL 50 MG TABLET PO ×2 (01:24→20:25)
--- NOTE | 2024-12-25 07:36 | P.HPPS_ITS ---
HPI Date of Service: 12/25/24 Chief Complaint: decompensation Sources of Information: patient interviewed, chart reviewed and crisis/core team assessment reviewed HPI Subjective Notes: Conditional Voluntary Healthcare Proxy: No Guardianship: No Medical Problems Affecting Mental Status: Yes (possibly- RUL finding on xray being treated as pneumonia ) Narrative: 49 yo WM homeless man with opiate and alcohol abuse- recent opiate and fentanyl on top of methadone- as well as alcohol use- has had inc paranoid ideation on presentation , weight loss, never had hx of PI prior- he has had seizures from alcohol withdrawal- Hx of lymphocytosis- worked up in past- no finding no prior psychiatric hospitalizations, Does feel anxious and sweaty and nerves - seems to be responding to ciwa with 8 got ativan 1mg with effect of sedation pt was sleeping earlier when I came to see him. He said he feared he was going to , didn't know he had pneumonia. He has had trouble sleeping even when he had a safe space to lie down, energy level has been ok, decreased eating with weigh tloss- (on eats 2-3 days due to access to food) Past Psychiatric History: no prior psych hx no suicidea attempts Medical Evaluation Reviewed: Yes (lymphocytosis, anemia on abiotic for presumed pneumonia on xray though no left shift) radiology will need to be repeated post antibiotic as can not rule out malignancy- [facility] Medical History History of wrist sprain Narrative: hx of lymphocytosis worked up a few years ago he said with no finding- no pcp reports hx of alcohol withdrawl seizures Surgical History History of appendectomy History of tonsillectomy Family History: 2 brothers- both with substance use, they are all homeless , one of brothers with agoraphobia/PI Social History: homelessness Substance History: on methadone , and used opiates and fentanyl Trauma History: denies hx of being violent- Diagnostics Vital Signs (24Hr): Vital Signs - 24 hr 12/24/24 08:05 12/24/24 12:23 12/24/24 16:13 Temperature 98.6 F 98.3 F 98.0 F Pulse Rate 84 72 98 Respiratory Rate 16 16 16 Blood Pressure 95/57 L 106/57 L 104/69 Pulse Oximetry 99 97 99 Oxygen Delivery Method Room Air Room Air Room Air 12/24/24 20:00 12/24/24 21:00 12/25/24 01:20 Temperature 99.8 F 97.7 F 97.3 F Pulse Rate 95 68 60 Respiratory Rate Blood Pressure 92/52 L 99/50 L 93/54 L Pulse Oximetry 97 97 97 Oxygen Delivery Method Room Air Room Air Room Air BMI result Body Mass Index 21.2 Labs 12/24/24 07:53 12/24/24 14:20 Labs: Laboratory Results - last 48 hr 12/22/24 12/23/24 12/23/24 18:10 10:30 16:33 WBC 28.8 H RBC 3.68 L Hgb 10.4 L Hct 33.2 L MCV 90.2 MCH 28.3 MCHC 31.3 RDW 13.6 Plt Count 344 MPV 9.5 Immature Gran % (Auto) Cancelled Neut % (Auto) Cancelled Lymph % (Auto) Cancelled Wilkinson % (Auto) Cancelled Eos % (Auto) Cancelled Baso % (Auto) Cancelled Lymph # (Auto) Cancelled Wilkinson # (Auto) Cancelled Eos # (Auto) Cancelled Baso # (Auto) Cancelled Abs Immat Gran (auto) Cancelled Absolute Neuts (auto) Cancelled Absolute Nucleated RBC 0.000 Nucleated RBC % (auto) 0.0 Neutrophils % (Manual) 33 L Band Neutrophils % 2 L Lymphocytes % (Manual) 62 H Monocytes % (Manual) 3 Abs Neuts (Manual) 10.1 H Lymphocytes # (Manual) 17.9 H Monocytes # (Manual) 0.9 Smudge Cells PRESENT Platelet Estimate NORMAL Plt Morphology Comment NORMAL RBC Morphology NORMAL Smear Tech's Comments Smear Path Review SEE NOTE ESR Sodium Potassium Chloride Carbon Dioxide Anion Gap BUN Creatinine Estim Creat Clear Calc Estimated GFR Random Glucose Lactic Acid Calcium Total Bilirubin AST ALT Alkaline Phosphatase C-Reactive Protein Total Protein Albumin Monoscreen HIV 1&2 Ab/P24 Ag 4thGn Nonreactive 12/23/24 12/24/24 12/24/24 16:34 07:53 08:39 WBC 27.8 H RBC 3.69 L Hgb 10.6 L Hct 32.8 L MCV 88.9 MCH 28.7 MCHC 32.3 RDW 13.5 Plt Count 308 MPV 9.6 Immature Gran % (Auto) 0.5 H Neut % (Auto) 38.7 L Lymph % (Auto) 58.2 H Wilkinson % (Auto) 2.1 Eos % (Auto) 0.2 Baso % (Auto) 0.3 Lymph # (Auto) 16.2 H Wilkinson # (Auto) 0.6 Eos # (Auto) 0.1 Baso # (Auto) 0.1 Abs Immat Gran (auto) 0.13 H Absolute Neuts (auto) 10.8 H Absolute Nucleated RBC 0.000 Nucleated RBC % (auto) 0.0 Neutrophils % (Manual) Band Neutrophils % Lymphocytes % (Manual) Monocytes % (Manual) Abs Neuts (Manual) Lymphocytes # (Manual) Monocytes # (Manual) Smudge Cells Platelet Estimate Plt Morphology Comment RBC Morphology Smear Tech's Comments VERIFIED Smear Path Review ESR 86 H Sodium Potassium Chloride Carbon Dioxide Anion Gap BUN Creatinine Estim Creat Clear Calc Estimated GFR Random Glucose Lactic Acid 1.1 Calcium Total Bilirubin AST ALT Alkaline Phosphatase C-Reactive Protein 3.75 H Total Protein Albumin Monoscreen Negative HIV 1&2 Ab/P24 Ag 4thGn 12/24/24 14:20 WBC RBC Hgb Hct MCV MCH MCHC RDW Plt Count MPV Immature Gran % (Auto) Neut % (Auto) Lymph % (Auto) Wilkinson % (Auto) Eos % (Auto) Baso % (Auto) Lymph # (Auto) Wilkinson # (Auto) Eos # (Auto) Baso # (Auto) Abs Immat Gran (auto) Absolute Neuts (auto) Absolute Nucleated RBC Nucleated RBC % (auto) Neutrophils % (Manual) Band Neutrophils % Lymphocytes % (Manual) Monocytes % (Manual) Abs Neuts (Manual) Lymphocytes # (Manual) Monocytes # (Manual) Smudge Cells Platelet Estimate Plt Morphology Comment RBC Morphology Smear Tech's Comments Smear Path Review ESR Sodium 137 Potassium 4.4 Chloride 104 Carbon Dioxide 30 H Anion Gap 7 L BUN 14 Creatinine 0.68 Estim Creat Clear Calc 115.4 Estimated GFR > 60 Random Glucose 101 Lactic Acid Calcium 8.7 Total Bilirubin 0.2 AST 13 ALT < 6 Alkaline Phosphatase 62 C-Reactive Protein Total Protein 6.3 L Albumin 3.2 L Monoscreen HIV 1&2 Ab/P24 Ag 4thGn EKG EKG: reviewed Imaging Radiology Impressions: ITS Impressions Chest X-Ray 12/24/24 07:30 IMPRESSION: Pneumonia, right upper lung lobe. Recommend follow-up until resolution, underlying lesion/malignancy cannot be excluded. Electronically signed by: Shon Worley MD 12/24/2024 08:04 AM EDT Meds/Allergies Meds Home Medications ?Medication ?Instructions ?Recorded ?Confirmed ?Type methadone 10 mg/mL oral concentrate 90 mg PO DAILY 12/22/24 12/22/24 History Allergies Allergies Allergy/AdvReac Type Severity Reaction Status Date / Time No Known Allergies Allergy Mild N/A Verified 12/22/24 15:48 Mental Status Exam Mental Status Exam Narrative: tired lying in bed, thin Patient Appearance: Unkempt Patient Orientation: Person, Place, Time and Situation Level of Consciousness: Awake Patient Behavior: Appropriate, Cooperative and Passive Mood Description: Calm and Constricted Affect Description: Appropriate Patient Cognition Impaired: No Ability to Follow Directions: Fair Speech Pattern: Clear Hallucinations: None Delusions: Paranoid Ideation Thought Process: Intact and Goal Oriented Depressive Symptoms: Insomnia, Difficulty Sleeping, Significant Weight Loss and Thoughts of /Suicide Abnormal Motor Activity Signs and Symptoms: Psychomotor Retardation Judgement: Fair Assessment & Plan Patient educated on: medication risk/benefits, substance abuse, medical condition and other (symptoms) Informed Consent: understands and further education needed Reason for continued inpatient stay Substantial Risk for: inability to function, rapid decompensation and med/psych decompensation Statement Statement: I have reviewed the history and physical and performed a pertinent examination on my patient. No changes have occurred unless specified. If the History and Physical was not performed prior to admission, the Hospitalist's service will be consulted for completing the admission physical. Time Spent With Patient Time: Total time managing care of this patient today ____ minutes.
[2024-12-25] MEDS: methADONE HCl 20 MG/2 ML ORAL.CONC 90 MG PO (07:49)
[2024-12-25] MEDS: Doxycycline Monohydrate 100 MG CAPSULE PO ×2 (07:54→20:24)
[2024-12-25] MEDS: Amoxicillin/Potassium Clav 875 MG TABLET PO ×2 (07:54→20:23)
[2024-12-25] MEDS: LORazepam 1 MG TABLET PO (07:54)
[2024-12-25] MEDS: Folic Acid 1 MG TABLET PO (07:54)
[2024-12-25] MEDS: Gabapentin 300 MG CAPSULE PO ×3 (07:54→20:25)
[2024-12-25] MEDS: Thiamine HCL 100 MG TABLET PO (07:54)
[2024-12-25 08:00] VITALS: BP 92/50; PULSE 63; RESP 18; TEMP 37.1; O2SAT 96
[2024-12-25] MEDS: Flu Vacc TS2024-25(6mos up)/PF 0.5 ML SYRINGE IM (08:31)
[2024-12-25 09:37] LABS: Estimated Average Glucose 105 mg/dL; Hemoglobin A1C 95.8645 umol/L; Hemoglobin A1c % 5.3 % (<6.0); Total Hemoglobin (HGBA1C) 2780.0446 umol/L
[2024-12-25 09:49] LABS: Cholesterol 109 mg/dL (<200); HDL Cholesterol 27 mg/dL (>40); LDL Cholesterol Calculated 73 mg/dL (<100); Triglycerides 48 mg/dL (<150)
[2024-12-25 10:03] LABS: TSH reflex Free T4 2.82 uIU/mL (0.32-4.0)
[2024-12-25] MEDS: LORazepam 1 MG TABLET 2 MG PO (14:41)
[2024-12-25] MEDS: Acetaminophen 325 MG TABLET 650 MG PO ×2 (14:44→20:44)
[2024-12-25 14:53] VITALS: BP 108/61; PULSE 65; RESP 19; TEMP 36.6; O2SAT 96
[2024-12-25 20:00] VITALS: BP 102/57; PULSE 77; TEMP 36.4; O2SAT 96
[2024-12-25] MEDS: Mirtazapine 7.5 MG TABLET PO (20:24)
[2024-12-26 01:30] VITALS: BP 101/57; PULSE 78; TEMP 36.4; O2SAT 97
[2024-12-26] MEDS: LORazepam 1 MG TABLET 2 MG PO (01:38)
[2024-12-26 05:30] VITALS: BP 100/51; PULSE 65; TEMP 37.1
[2024-12-26] MEDS: methADONE HCl 20 MG/2 ML ORAL.CONC 90 MG PO (07:54)
[2024-12-26 08:00] VITALS: BP 96/51; PULSE 69; RESP 18; TEMP 36.3; O2SAT 97
[2024-12-26] MEDS: Doxycycline Monohydrate 100 MG CAPSULE PO ×2 (08:31→21:02)
[2024-12-26] MEDS: Amoxicillin/Potassium Clav 875 MG TABLET PO ×2 (08:31→21:02)
[2024-12-26] MEDS: Thiamine HCL 100 MG TABLET PO (08:31)
[2024-12-26] MEDS: Gabapentin 300 MG CAPSULE PO ×2 (08:32→14:22)
[2024-12-26] MEDS: Folic Acid 1 MG TABLET PO (08:32)
[2024-12-26] MEDS: LORazepam 1 MG TABLET PO ×3 (08:32→23:40)
[2024-12-26] MEDS: Acetaminophen 325 MG TABLET 650 MG PO ×2 (08:35→23:40)
--- NOTE | 2024-12-26 10:40 | P.PNPSI_ITS ---
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 =- Medication Compliance: Yes Side effects from medications: Yes (sedation) Attending Groups: Intermittent Review of Systems Acute medical concerns: Yes see above also chronic lymphocytosis hx Medical Review of Systems: unchanged Mental Status Exam Mental Status Exam Patient Appearance: Unkempt Patient Orientation: Person, Place, Time and Situation Level of Consciousness: Drowsy Patient Behavior: Appropriate, Cooperative, Sedated (rousable) and Poor Eye Contact Behavior Comments: eating in kitchen, not sure he is going to groups may be too tired from medication Mood Description: Anxious and Sad Affect Description: Flat Patient Cognition Impaired: No Ability to Follow Directions: Fair Speech Pattern: Clear Hallucinations: None Delusions: Not Present Thought Process: Intact and Goal Oriented Thought Content: positive for [place] Depressive Symptoms: Changes in Appetite (improving appetite- access to food ), Significant Weight Loss, Increased Fatigue and Loss of Energy Judgement: Fair Diagnostics Vital Signs (24Hr): Vital Signs - 24 hr 12/25/24 14:53 12/25/24 20:00 12/26/24 01:30 Temperature 97.8 F 97.5 F 97.5 F Pulse Rate 65 77 78 Respiratory Rate 19 Blood Pressure 108/61 102/57 L 101/57 L Pulse Oximetry 96 96 97 Oxygen Delivery Method Room Air Room Air Room Air 12/26/24 05:30 12/26/24 08:00 Temperature 98.7 F 97.4 F Pulse Rate 65 69 Respiratory Rate 18 Blood Pressure 100/51 L 96/51 L Pulse Oximetry 97 Oxygen Delivery Method Room Air BMI result Body Mass Index 21.2 Labs 12/24/24 07:53 12/24/24 14:20 Labs: Laboratory Results - last 48 hr 12/24/24 12/25/24 14:20 09:08 Sodium 137 Potassium 4.4 Chloride 104 Carbon Dioxide 30 H Anion Gap 7 L BUN 14 Creatinine 0.68 Estim Creat Clear Calc 115.4 Estimated GFR > 60 Random Glucose 101 Estimat Average Glucose 105 Hemoglobin A1c % 5.3 Calcium 8.7 Total Bilirubin 0.2 AST 13 ALT < 6 Alkaline Phosphatase 62 Total Protein 6.3 L Albumin 3.2 L Triglycerides 48 Cholesterol 109 LDL Cholesterol, Calc 73 HDL Cholesterol 27 L TSH 2.82 Imaging Radiology Impressions: ITS Impressions Chest X-Ray 12/24/24 07:30 IMPRESSION: Pneumonia, right upper lung lobe. Recommend follow-up until resolution, underlying lesion/malignancy cannot be excluded. Electronically signed by: Shon Worley MD 12/24/2024 08:04 AM EDT RP Medications Medications Current Medications Acetaminophen (Acetaminophen 325 Mg Tablet) 650 mg PO Q6H PRN PRN Reason: Headache/Pain, Scale 1-10 Last Admin: 12/26/24 08:35 Dose: 650 mg Al Hydroxide/Mg Hydroxide (Magnesium Hydrox/Alum Hydrox 30 Ml Oral.Susp) 30 ml PO Q6H PRN PRN Reason: Heartburn/Nausea Amoxicillin/Clavulanate Potassium (Amoxicillin/Potassium Clav 875 Mg Tablet) 875 mg PO BID [facility] Stop: 12/31/24 20:59 Last Admin: 12/26/24 08:31 Dose: 875 mg Doxycycline Monohydrate (Doxycycline Monohydrate 100 Mg Capsule) 100 mg PO BID [facility] Stop: 12/31/24 20:59 Last Admin: 12/26/24 08:31 Dose: 100 mg Folic Acid (Folic Acid 1 Mg Tablet) 1 mg PO DAILY [facility] Last Admin: 12/26/24 08:32 Dose: 1 mg Gabapentin (Gabapentin 300 Mg Capsule) 300 mg PO TID [facility] Stop: 12/26/24 20:59 Last Admin: 12/26/24 08:32 Dose: 300 mg Gabapentin (Gabapentin 100 Mg Capsule) 200 mg PO BID [facility] Stop: 12/28/24 23:00 Hydroxyzine HCl (Hydroxyzine Hcl 25 Mg Tablet) 25 mg PO Q6H PRN PRN Reason: mild anxiety Lorazepam (Lorazepam 1 Mg Tablet) 1 mg PO Q2H PRN PRN Reason: CIWA 6-10 Last Admin: 12/26/24 08:32 Dose: 1 mg Lorazepam (Lorazepam 1 Mg Tablet) 2 mg PO Q2H PRN PRN Reason: CIWA 11 and above Last Admin: 12/26/24 01:38 Dose: 2 mg Magnesium Hydroxide (Milk Of Magnesia 30 Ml Oral.Susp) 30 ml PO DAILY PRN PRN Reason: Constipation Methadone HCl (Methadone Hcl 20 Mg/2 Ml Oral.Conc) 90 mg PO DAILY [facility] Last Admin: 12/26/24 07:54 Dose: 90 mg Mirtazapine (Mirtazapine 7.5 Mg Tablet) 7.5 mg PO BEDTIME [facility] Last Admin: 12/25/24 20:24 Dose: 7.5 mg Nicotine Polacrilex (Nicotine Polacrilex 2 Mg Gum) 4 mg BUCCAL Q2H PRN PRN Reason: Nicotine Cravings Thiamine HCl (Thiamine Hcl 100 Mg Tablet) 100 mg PO DAILY [facility] Last Admin: 12/26/24 08:31 Dose: 100 mg Trazodone HCl (Trazodone Hcl 50 Mg Tablet) 50 mg PO BEDTIME MRX1 PRN PRN Reason: Insomnia Last Admin: 12/25/24 20:25 Dose: 50 mg Allergies Allergies Allergy/AdvReac Type Severity Reaction Status Date / Time No Known Allergies Allergy Mild N/A Verified 12/22/24 15:48 Assessment & Plan Patient educated on: medication risk/benefits, substance abuse, therapeutic strategies and medical condition Informed Consent: understands and further education needed Reason for continued inpatient stay Substantial Risk for: harm to self, rapid decompensation and med/psych decompensation Time Spent With Patient Time: Total time managing care of this patient today ____ minutes.
[2024-12-26 12:33] LABS: RPR Rapid Plasma Reagin NON-REACTIVE (NON-REACTIVE)
[2024-12-26 12:54] VITALS: BP 117/69; PULSE 85; RESP 19; O2SAT 97
[2024-12-26 19:33] VITALS: BP 100/55; PULSE 87; RESP 16; TEMP 37.2; O2SAT 96
[2024-12-26] MEDS: Mirtazapine 7.5 MG TABLET PO (21:02)
[2024-12-26] MEDS: traZODone HCL 50 MG TABLET PO ×2 (21:22→23:40)
[2024-12-26] MEDS: hydrOXYzine HCL 25 MG TABLET PO (23:40)
[2024-12-27 04:00] VITALS: BP 100/55; PULSE 68; RESP 14; TEMP 36.9; O2SAT 95
[2024-12-27 07:46] VITALS: BP 137/70; PULSE 96; RESP 18; TEMP 36.4; O2SAT 98
[2024-12-27] MEDS: methADONE HCl 20 MG/2 ML ORAL.CONC 90 MG PO (07:50)
[2024-12-27] MEDS: Thiamine HCL 100 MG TABLET PO (08:20)
[2024-12-27] MEDS: Gabapentin 100 MG CAPSULE 200 MG PO ×2 (08:20→20:32)
[2024-12-27] MEDS: Amoxicillin/Potassium Clav 875 MG TABLET PO ×2 (08:20→20:32)
[2024-12-27] MEDS: Doxycycline Monohydrate 100 MG CAPSULE PO ×2 (08:20→20:33)
[2024-12-27] MEDS: Folic Acid 1 MG TABLET PO (08:20)
--- NOTE | 2024-12-27 09:24 | HO.PSYCHPN ---
Subjective Subjective Date of Service: 12/27/24 Reason For Visit: decompensation Interim History: met with patient; discussed with team; reviewed chart Patient reports that depression and anxiety are both a little better; he was started on mirtazapine this weekend and says he thinks it is helping. Patient also thinks that withdrawal is much less. Initially wanted methadone increased but agrees to wait since he is still scoring though minimally, on CIWA. Discussed aftercare. Patient wants to remain on Methadone and maybe go up but dose not want to go to a program or other help w/substance abuse treatment; instead patient wants to work on sobriety on his own and with his brother whom he says is waiting for him at a hotel. -talked about seeing his daughter who is visiting this week; regrets that he has to deal with his substance abuse issues and will likely miss her Mental Status Exam Mental Status Exam Narrative: Pt is alert and oriented; behavior is isolative though cooperative and friendly on approach; calm; patient is not in distress; dressed in casual attire, disheveled; mood is described as alright... and affect congruent, somewhat blunted; eye contact appropriate; Speech is little slowed, a little soft, but normal prosody; some psychomotor retardation present; thought process is organized and goal directed; Thought content is on tx, aftercare, seeing his daughter; otherwise pertinent to relevant topics and without any delusional content, paranoid ideations or grandiosity; denies any SI/HI. Denies AVH and there is no evidence of perceptual disturbance. Patients insight and judgment appear intact. Diagnostics Vital Signs (24Hr): Vital Signs - 24 hr 12/26/24 12:54 12/26/24 19:33 12/27/24 04:00 Temperature 99.0 F 98.4 F Pulse Rate 85 87 68 Respiratory Rate 19 16 14 Blood Pressure 117/69 100/55 L 100/55 L Pulse Oximetry 97 96 95 Oxygen Delivery Method Room Air Room Air 12/27/24 07:46 Temperature 97.6 F Pulse Rate 96 Respiratory Rate 18 Blood Pressure 137/70 Pulse Oximetry 98 Oxygen Delivery Method Room Air BMI result Body Mass Index 21.2 Labs 12/24/24 07:53 12/24/24 14:20 Labs: Laboratory Results - last 48 hr 12/23/24 12/25/24 16:33 09:08 Estimat Average Glucose 105 Hemoglobin A1c % 5.3 Triglycerides 48 Cholesterol 109 LDL Cholesterol, Calc 73 HDL Cholesterol 27 L TSH 2.82 RPR NON-REACTIVE Imaging Radiology Impressions: ITS Impressions Chest X-Ray 12/24/24 07:30 IMPRESSION: Pneumonia, right upper lung lobe. Recommend follow-up until resolution, underlying lesion/malignancy cannot be excluded. Electronically signed by: Shon Worley MD 12/24/2024 08:04 AM EDT Medications Medications Current Medications Acetaminophen (Acetaminophen 325 Mg Tablet) 650 mg PO Q6H PRN PRN Reason: Headache/Pain, Scale 1-10 Last Admin: 12/26/24 23:40 Dose: 650 mg Al Hydroxide/Mg Hydroxide (Magnesium Hydrox/Alum Hydrox 30 Ml Oral.Susp) 30 ml PO Q6H PRN PRN Reason: Heartburn/Nausea Amoxicillin/Clavulanate Potassium (Amoxicillin/Potassium Clav 875 Mg Tablet) 875 mg PO BID [facility] Stop: 12/31/24 20:59 Last Admin: 12/27/24 08:20 Dose: 875 mg Doxycycline Monohydrate (Doxycycline Monohydrate 100 Mg Capsule) 100 mg PO BID [facility] Stop: 12/31/24 20:59 Last Admin: 12/27/24 08:20 Dose: 100 mg Folic Acid (Folic Acid 1 Mg Tablet) 1 mg PO DAILY [facility] Last Admin: 12/27/24 08:20 Dose: 1 mg Gabapentin (Gabapentin 100 Mg Capsule) 200 mg PO BID [facility] Stop: 12/28/24 23:00 Last Admin: 12/27/24 08:20 Dose: 200 mg Hydroxyzine HCl (Hydroxyzine Hcl 25 Mg Tablet) 25 mg PO Q6H PRN PRN Reason: mild anxiety Last Admin: 12/26/24 23:40 Dose: 25 mg Lorazepam (Lorazepam 1 Mg Tablet) 1 mg PO Q4H PRN PRN Reason: CIWA 6-10 Last Admin: 12/26/24 23:40 Dose: 1 mg Lorazepam (Lorazepam 1 Mg Tablet) 2 mg PO Q4H PRN PRN Reason: CIWA 11 and above Magnesium Hydroxide (Milk Of Magnesia 30 Ml Oral.Susp) 30 ml PO DAILY PRN PRN Reason: Constipation Methadone HCl (Methadone Hcl 20 Mg/2 Ml Oral.Conc) 90 mg PO DAILY@0800 [facility] Last Admin: 12/27/24 07:50 Dose: 90 mg Mirtazapine (Mirtazapine 7.5 Mg Tablet) 7.5 mg PO BEDTIME [facility] Last Admin: 12/26/24 21:02 Dose: 7.5 mg Nicotine Polacrilex (Nicotine Polacrilex 2 Mg Gum) 4 mg BUCCAL Q2H PRN PRN Reason: Nicotine Cravings Thiamine HCl (Thiamine Hcl 100 Mg Tablet) 100 mg PO DAILY [facility] Last Admin: 12/27/24 08:20 Dose: 100 mg Trazodone HCl (Trazodone Hcl 50 Mg Tablet) 50 mg PO BEDTIME MRX1 PRN PRN Reason: Insomnia Last Admin: 12/26/24 23:40 Dose: 50 mg Allergies Allergies Allergy/AdvReac Type Severity Reaction Status Date / Time No Known Allergies Allergy Mild N/A Verified 12/22/24 15:48 Assessment & Plan Assessment & Plan (1) MDD (major depressive disorder), recurrent severe, without psychosis: Status: Acute Code(s): F33.2 - Major depressive disorder, recurrent severe without psychotic features (2) Right upper lobe pneumonia: Qualifiers: Pneumonia type: due to unspecified organism Qualified Code(s): J18.9 - Pneumonia, unspecified organism Status: Acute Code(s): J18.9 - Pneumonia, unspecified organism (3) Alcohol use disorder: Status: Acute Code(s): F10.90 - Alcohol use, unspecified, uncomplicated (4) Opioid use disorder: Status: Acute Code(s): F11.90 - Opioid use, unspecified, uncomplicated (5) Homeless: Status: Acute Code(s): Z59.00 - Homelessness unspecified Plan HPI: 49 yo WM homeless man with opiate and alcohol abuse- recent opiate and fentanyl on top of methadone- as well as alcohol use- has had inc paranoid ideation on presentation , weight loss, never had hx of PI prior- he has had seizures from alcohol withdrawal- Hx of lymphocytosis- worked up in past- no finding no prior psychiatric hospitalizations, Does feel anxious and sweaty and nerves - seems to be responding to ciwa with 8 got ativan 1mg with effect of sedation pt was sleeping earlier when I came to see him. He said he feared he was going to , didn't know he had pneumonia. He has had trouble sleeping even when he had a safe space to lie down, energy level has been ok, decreased eating with weigh tloss- (on eats 2-3 days due to access to food) 12/27 Patient reports that depression and anxiety are both a little better; he was started on mirtazapine this weekend and says he thinks it is helping. Patient also thinks that withdrawal is much less. Initially wanted methadone increased but agrees to wait since he is still scoring though minimally, on CIWA. Discussed aftercare. Patient wants to remain on Methadone and maybe go up but dose not want to go to a program or other help w/substance abuse treatment; instead patient wants to work on sobriety on his own and with his brother whom he says is waiting for him at a hotel. Plan: CV Continue CIWA for now Ativan and gabapentin taper Mirtazapine 7.5 mg q.h.s. Methadone 90 mg; patient says he has never been higher than 90 before Patient educated on: diagnosis, medication risk/benefits, substance abuse and therapeutic strategies Informed Consent: understands Reason for continued inpatient stay Substantial Risk for: rapid decompensation Time Spent With Patient Time: Total time managing care of this patient today ____ minutes.
[2024-12-27 13:13] VITALS: BP 113/51; PULSE 73; RESP 18; O2SAT 96
[2024-12-27] MEDS: LORazepam 1 MG TABLET 2 MG PO (13:13)
[2024-12-27 19:45] VITALS: BP 119/55; PULSE 86; TEMP 36.4; O2SAT 96
[2024-12-27] MEDS: hydrOXYzine HCL 25 MG TABLET PO (20:32)
[2024-12-27] MEDS: Mirtazapine 7.5 MG TABLET PO (20:32)
[2024-12-27] MEDS: traZODone HCL 50 MG TABLET PO (20:32)
[2024-12-27] MEDS: LORazepam 1 MG TABLET PO (20:33)
[2024-12-28] MEDS: Acetaminophen 325 MG TABLET 650 MG PO (05:17)
[2024-12-28] MEDS: hydrOXYzine HCL 25 MG TABLET PO ×2 (05:18→20:53)
[2024-12-28] MEDS: methADONE HCl 20 MG/2 ML ORAL.CONC 90 MG PO (07:39)
[2024-12-28 08:30] VITALS: BP 97/59; PULSE 62; RESP 18; TEMP 36.9; O2SAT 98
[2024-12-28] MEDS: Amoxicillin/Potassium Clav 875 MG TABLET PO ×2 (08:36→20:53)
[2024-12-28] MEDS: Doxycycline Monohydrate 100 MG CAPSULE PO ×2 (08:36→20:54)
[2024-12-28] MEDS: Gabapentin 100 MG CAPSULE 200 MG PO ×2 (08:36→20:53)
[2024-12-28] MEDS: Thiamine HCL 100 MG TABLET PO (08:36)
[2024-12-28] MEDS: Folic Acid 1 MG TABLET PO (08:36)
--- NOTE | 2024-12-28 14:26 | P.PNPSI_ITS ---
Subjective Subjective Date of Service: 12/28/24 Reason For Visit: decompensation Interim History: met with pt; discussed with team pt up and about, dressed and in the milue. He says he's feeling much better, w/drawal over and wants to discuss discharge. Mood is good' and no SI at all. He does not want any further substance abuse treatment. His plan is to see his daughter who was visiting for the week. Mental Status Exam Mental Status Exam Narrative: Pt is alert and oriented; behavior is cooperative, friendly and calm; patient is not in distress; dressed in casual attire with adequate hygiene and grooming; mood is described as good and affect congruent; eye contact appropriate; Speech is normal rate, volume and prosody and not pressured; no psychomotor agitation/retardation present; thought process is organized and goal directed; Thought content is on tx; otherwise pertinent to relevant topics and without any delusional content, paranoid ideations or grandiosity; denies any SI/HI. Denies AVH and there is no evidence of perceptual disturbance. Patients insight and judgment appear intact. Diagnostics Vital Signs (24Hr): Vital Signs - 24 hr 12/27/24 19:45 12/28/24 08:30 Temperature 97.6 F 98.4 F Pulse Rate 86 62 Respiratory Rate 18 Blood Pressure 119/55 L 97/59 L Pulse Oximetry 96 98 Oxygen Delivery Method Room Air Room Air BMI result Body Mass Index 21.2 Labs 12/24/24 07:53 12/24/24 14:20 Labs: Laboratory Results - last 48 hr 12/23/24 16:33 RPR Titer TNP Imaging Radiology Impressions: ITS Impressions Chest X-Ray 12/24/24 07:30 IMPRESSION: Pneumonia, right upper lung lobe. Recommend follow-up until resolution, underlying lesion/malignancy cannot be excluded. Electronically signed by: Shon Worley MD 12/24/2024 08:04 AM EDT RP Medications Medications Current Medications Acetaminophen (Acetaminophen 325 Mg Tablet) 650 mg PO Q6H PRN PRN Reason: Headache/Pain, Scale 1-10 Last Admin: 12/28/24 05:17 Dose: 650 mg Al Hydroxide/Mg Hydroxide (Magnesium Hydrox/Alum Hydrox 30 Ml Oral.Susp) 30 ml PO Q6H PRN PRN Reason: Heartburn/Nausea Amoxicillin/Clavulanate Potassium (Amoxicillin/Potassium Clav 875 Mg Tablet) 875 mg PO BID [facility] Stop: 12/31/24 20:59 Last Admin: 12/28/24 08:36 Dose: 875 mg Doxycycline Monohydrate (Doxycycline Monohydrate 100 Mg Capsule) 100 mg PO BID [facility] Stop: 12/31/24 20:59 Last Admin: 12/28/24 08:36 Dose: 100 mg Folic Acid (Folic Acid 1 Mg Tablet) 1 mg PO DAILY [facility] Last Admin: 12/28/24 08:36 Dose: 1 mg Gabapentin (Gabapentin 100 Mg Capsule) 200 mg PO BID [facility] Stop: 12/28/24 23:00 Last Admin: 12/28/24 08:36 Dose: 200 mg Hydroxyzine HCl (Hydroxyzine Hcl 25 Mg Tablet) 25 mg PO Q6H PRN PRN Reason: mild anxiety Last Admin: 12/28/24 05:18 Dose: 25 mg Magnesium Hydroxide (Milk Of Magnesia 30 Ml Oral.Susp) 30 ml PO DAILY PRN PRN Reason: Constipation Methadone HCl (Methadone Hcl 20 Mg/2 Ml Oral.Conc) 90 mg PO DAILY@0800 [facility] Last Admin: 12/28/24 07:39 Dose: 90 mg Mirtazapine (Mirtazapine 7.5 Mg Tablet) 7.5 mg PO BEDTIME [facility] Last Admin: 12/27/24 20:32 Dose: 7.5 mg Nicotine Polacrilex (Nicotine Polacrilex 2 Mg Gum) 4 mg BUCCAL Q2H PRN PRN Reason: Nicotine Cravings Thiamine HCl (Thiamine Hcl 100 Mg Tablet) 100 mg PO DAILY [facility] Last Admin: 12/28/24 08:36 Dose: 100 mg Trazodone HCl (Trazodone Hcl 50 Mg Tablet) 50 mg PO BEDTIME MRX1 PRN PRN Reason: Insomnia Last Admin: 12/27/24 20:32 Dose: 50 mg Allergies Allergies Allergy/AdvReac Type Severity Reaction Status Date / Time No Known Allergies Allergy Mild N/A Verified 12/22/24 15:48 Assessment & Plan Assessment & Plan (1) MDD (major depressive disorder), recurrent severe, without psychosis: Status: Acute Code(s): F33.2 - Major depressive disorder, recurrent severe without psychotic features (2) Right upper lobe pneumonia: Qualifiers: Pneumonia type: due to unspecified organism Qualified Code(s): J18.9 - Pneumonia, unspecified organism Status: Acute Code(s): J18.9 - Pneumonia, unspecified organism (3) Alcohol use disorder: Status: Acute Code(s): F10.90 - Alcohol use, unspecified, uncomplicated (4) Opioid use disorder: Status: Acute Code(s): F11.90 - Opioid use, unspecified, uncomplicated (5) Homeless: Status: Acute Code(s): Z59.00 - Homelessness unspecified Plan HPI: 49 yo WM homeless man with opiate and alcohol abuse- recent opiate and fentanyl on top of methadone- as well as alcohol use- has had inc paranoid ideation on presentation , weight loss, never had hx of PI prior- he has had seizures from alcohol withdrawal- Hx of lymphocytosis- worked up in past- no finding no prior psychiatric hospitalizations, Does feel anxious and sweaty and nerves - seems to be responding to ciwa with 8 got ativan 1mg with effect of sedation pt was sleeping earlier when I came to see him. He said he feared he was going to , didn't know he had pneumonia. He has had trouble sleeping even when he had a safe space to lie down, energy level has been ok, decreased eating with weigh tloss- (on eats 2-3 days due to access to food) 12/27 Patient reports that depression and anxiety are both a little better; he was started on mirtazapine this weekend and says he thinks it is helping. Patient also thinks that withdrawal is much less. Initially wanted methadone increased but agrees to wait since he is still scoring though minimally, on CIWA. Discussed aftercare. Patient wants to remain on Methadone and maybe go up but dose not want to go to a program or other help w/substance abuse treatment; instead patient wants to work on sobriety on his own and with his brother whom he says is waiting for him at a hotel. 12/28 pt up and about, dressed and in the milue. He says he's feeling much better, w/drawal over and wants to discuss discharge. Mood is good' and no SI at all. He does not want any further substance abuse treatment. His plan is to see his daughter who was visiting for the week. Patient is at baseline. Not in imminent risk for harm to self or others and appropriate to return to the community for treatment Plan: CV DC CIWA for now Completing Ativan and gabapentin taper Mirtazapine 7.5 mg q.h.s. Methadone 90 mg; patient says he has never been higher than 90 before Patient educated on: diagnosis, medication risk/benefits and substance abuse Informed Consent: understands Reason for continued inpatient stay Substantial Risk for: stable for discharge Time Spent With Patient Time: Total time managing care of this patient today ____ minutes.
[2024-12-28 19:53] VITALS: BP 105/51; PULSE 70; TEMP 36.4; O2SAT 99
[2024-12-28] MEDS: Mirtazapine 7.5 MG TABLET PO (20:53)
[2024-12-28] MEDS: traZODone HCL 50 MG TABLET PO (20:53)
[2024-12-29] MEDS: methADONE HCl 20 MG/2 ML ORAL.CONC 90 MG PO (07:49)
[2024-12-29 08:00] VITALS: BP 107/56; PULSE 56; RESP 16; TEMP 36.4; O2SAT 98
--- NOTE | 2024-12-29 08:04 | P.DS_ITS ---
DS: Providers Provider Date of Service: 12/29/24 Date of admission: 12/24/24 13:35 Date of discharge: 12/29/24 Primary care physician: Unknown Physician Attending physician on admission: Claus Donovan Attending physician on discharge: Claus Donovan DS: Diagnosis Discharge Diagnosis (1) MDD (major depressive disorder), recurrent severe, without psychosis: Status: Acute (2) Right upper lobe pneumonia: Status: Acute (3) Alcohol use disorder: Status: Acute (4) Opioid use disorder: Status: Acute (5) Homeless: Status: Acute DS: Medications Discharge Medications Home Medications: Home Medications ?Medication ?Instructions ?Recorded ?Confirmed methadone 10 mg/mL oral concentrate 90 mg PO DAILY 12/22/24 12/22/24 Previous Rx's ?Medication ?Instructions ?Recorded amoxicillin 875 mg-potassium 1 tab PO BID 3 days #5 tabs 12/29/24 clavulanate 125 mg tablet doxycycline monohydrate 100 mg 100 mg PO BID 3 days #5 caps 12/29/24 capsule hydroxyzine HCl 25 mg tablet 25 mg PO Q6H PRN mild anxiety 30 12/29/24 days #60 tabs mirtazapine 7.5 mg tablet 7.5 mg PO BEDTIME 30 days #30 tabs 12/29/24 trazodone 50 mg tablet 50 mg PO BEDTIME PRN Insomnia 30 12/29/24 days #30 tabs Mental Status Exam Mental Status Exam Narrative: Pt is alert and oriented; behavior is cooperative, friendly and calm; patient is not in distress; dressed in casual attire with adequate hygiene and grooming; mood is described as good and affect congruent; eye contact appropriate; Speech is normal rate, volume and prosody and not pressured; no psychomotor agitation/retardation present; thought process is organized and goal directed; Thought content is on tx; otherwise pertinent to relevant topics and without any delusional content, paranoid ideations or grandiosity; denies any SI/HI. Denies AVH and there is no evidence of perceptual disturbance. Patients insight and judgment are intact. Data Data Completed and Pending Completed studies during hospitalization [Text1]: 12/22/24 12/22/24 12/22/24 18:10 19:32 20:25 WBC 26.7 H RBC 3.33 L Hgb 9.6 L Hct 30.0 L MCV 90.1 MCH 28.8 MCHC 32.0 RDW 13.5 Plt Count 340 MPV 9.6 Immature Gran % (Auto) Cancelled Neut % (Auto) Cancelled Lymph % (Auto) Cancelled Hendry % (Auto) Cancelled Eos % (Auto) Cancelled Baso % (Auto) Cancelled Lymph # (Auto) Cancelled Hendry # (Auto) Cancelled Eos # (Auto) Cancelled Baso # (Auto) Cancelled Abs Immat Gran (auto) Cancelled Absolute Neuts (auto) Cancelled Absolute Nucleated RBC 0.000 Nucleated RBC % (auto) 0.0 Neutrophils % (Manual) 23 L Band Neutrophils % 0 L Lymphocytes % (Manual) 69 H Atypical Lymphs % (Man) 8 H Monocytes % (Manual) Abs Neuts (Manual) 6.1 Lymphocytes # (Manual) 18.4 H Atyp Lymphs # (Manual) 2.1 Monocytes # (Manual) Smudge Cells Platelet Estimate NORMAL Plt Morphology Comment NORMAL RBC Morphology NORMAL Smear Tech's Comments MANUAL DIFF Smear Path Review SEE NOTE ESR Sodium 140 Potassium 4.6 Chloride 106 Carbon Dioxide 26 Anion Gap 13 BUN 16 Creatinine 0.66 Estim Creat Clear Calc 118.9 Estimated GFR > 60 Random Glucose 95 Estimat Average Glucose Hemoglobin A1c % Lactic Acid Calcium 8.5 Total Bilirubin 0.3 AST 13 ALT < 6 Alkaline Phosphatase 63 C-Reactive Protein Total Protein 6.1 L Albumin 3.2 L Triglycerides Cholesterol LDL Cholesterol, Calc HDL Cholesterol TSH Urine Color Yellow Urine Appearance Clear Urine pH 5.5 Ur Specific [place] 1.025 Urine Protein Negative Urine Glucose (UA) Negative Urine Ketones Trace Urine Blood Negative Urine Nitrite Negative Ur Leukocyte Esterase Trace H Urine RBC 0-2 Urine WBC 6-10 H Ur Squamous Epith Cells 3-5 Urine Bacteria None Seen Hyaline Casts 0-2 Salicylates < 5.0 L Urine Opiates Screen POSITIVE H Ur Buprenorphine Scrn Not Detected Ur Oxycodone Screen Not Detected Urine Methadone Screen Positive H Urine Fentanyl Screen POSITIVE H Acetaminophen < 3 Ur Barbiturates Screen Not Detected Ur Phencyclidine Scrn Not Detected Ur Amphetamines Screen Not Detected U Benzodiazepines Scrn Not Detected Urine Cocaine Screen POSITIVE H U Marijuana (THC) Screen POSITIVE H Ethyl Alcohol < 10 INDERJIT Screen INDERJIT Titer INDERJIT Titer 2 INDERJIT Titer 3 INDERJIT Pattern INDERJIT Pattern 2 INDERJIT Pattern 3 RPR Titer RPR Monoscreen HIV 1&2 Ab/P24 Ag 4thGn Influenza Type A (PCR) NEGATIVE Influenza Type B (PCR) NEGATIVE RSV RNA Qual (PCR) NEGATIVE SARS-CoV-2 RNA (RT-PCR) NEGATIVE 12/23/24 12/23/24 12/23/24 10:30 16:33 16:34 WBC 28.8 H RBC 3.68 L Hgb 10.4 L Hct 33.2 L MCV 90.2 MCH 28.3 MCHC 31.3 RDW 13.6 Plt Count 344 MPV 9.5 Immature Gran % (Auto) Cancelled Neut % (Auto) Cancelled Lymph % (Auto) Cancelled Hendry % (Auto) Cancelled Eos % (Auto) Cancelled Baso % (Auto) Cancelled Lymph # (Auto) Cancelled Hendry # (Auto) Cancelled Eos # (Auto) Cancelled Baso # (Auto) Cancelled Abs Immat Gran (auto) Cancelled Absolute Neuts (auto) Cancelled Absolute Nucleated RBC 0.000 Nucleated RBC % (auto) 0.0 Neutrophils % (Manual) 33 L Band Neutrophils % 2 L Lymphocytes % (Manual) 62 H Atypical Lymphs % (Man) Monocytes % (Manual) 3 Abs Neuts (Manual) 10.1 H Lymphocytes # (Manual) 17.9 H Atyp Lymphs # (Manual) Monocytes # (Manual) 0.9 Smudge Cells PRESENT Platelet Estimate NORMAL Plt Morphology Comment NORMAL RBC Morphology NORMAL Smear Tech's Comments Smear Path Review ESR Sodium Potassium Chloride Carbon Dioxide Anion Gap BUN Creatinine Estim Creat Clear Calc Estimated GFR Random Glucose Estimat Average Glucose Hemoglobin A1c % Lactic Acid Calcium Total Bilirubin AST ALT Alkaline Phosphatase C-Reactive Protein Total Protein Albumin Triglycerides Cholesterol LDL Cholesterol, Calc HDL Cholesterol TSH Urine Color Urine Appearance Urine pH Ur Specific [place] Urine Protein Urine Glucose (UA) Urine Ketones Urine Blood Urine Nitrite Ur Leukocyte Esterase Urine RBC Urine WBC Ur Squamous Epith Cells Urine Bacteria Hyaline Casts Salicylates Urine Opiates Screen Ur Buprenorphine Scrn Ur Oxycodone Screen Urine Methadone Screen Urine Fentanyl Screen Acetaminophen Ur Barbiturates Screen Ur Phencyclidine Scrn Ur Amphetamines Screen U Benzodiazepines Scrn Urine Cocaine Screen U Marijuana (THC) Screen Ethyl Alcohol INDERJIT Screen Pending INDERJIT Titer Pending INDERJIT Titer 2 Pending INDERJIT Titer 3 Pending INDERJIT Pattern Pending INDERJIT Pattern 2 Pending INDERJIT Pattern 3 Pending RPR Titer TNP RPR NON-REACTIVE Monoscreen Negative HIV 1&2 Ab/P24 Ag 4thGn Nonreactive Influenza Type A (PCR) Influenza Type B (PCR) RSV RNA Qual (PCR) SARS-CoV-2 RNA (RT-PCR) 12/24/24 12/24/24 12/24/24 07:53 08:39 14:20 WBC 27.8 H RBC 3.69 L Hgb 10.6 L Hct 32.8 L MCV 88.9 MCH 28.7 MCHC 32.3 RDW 13.5 Plt Count 308 MPV 9.6 Immature Gran % (Auto) 0.5 H Neut % (Auto) 38.7 L Lymph % (Auto) 58.2 H Hendry % (Auto) 2.1 Eos % (Auto) 0.2 Baso % (Auto) 0.3 Lymph # (Auto) 16.2 H Hendry # (Auto) 0.6 Eos # (Auto) 0.1 Baso # (Auto) 0.1 Abs Immat Gran (auto) 0.13 H Absolute Neuts (auto) 10.8 H Absolute Nucleated RBC 0.000 Nucleated RBC % (auto) 0.0 Neutrophils % (Manual) Band Neutrophils % Lymphocytes % (Manual) Atypical Lymphs % (Man) Monocytes % (Manual) Abs Neuts (Manual) Lymphocytes # (Manual) Atyp Lymphs # (Manual) Monocytes # (Manual) Smudge Cells Platelet Estimate Plt Morphology Comment RBC Morphology Smear Tech's Comments VERIFIED Smear Path Review ESR 86 H Sodium 137 Potassium 4.4 Chloride 104 Carbon Dioxide 30 H Anion Gap 7 L BUN 14 Creatinine 0.68 Estim Creat Clear Calc 115.4 Estimated GFR > 60 Random Glucose 101 Estimat Average Glucose Hemoglobin A1c % Lactic Acid 1.1 Calcium 8.7 Total Bilirubin 0.2 AST 13 ALT < 6 Alkaline Phosphatase 62 C-Reactive Protein 3.75 H Total Protein 6.3 L Albumin 3.2 L Triglycerides Cholesterol LDL Cholesterol, Calc HDL Cholesterol TSH Urine Color Urine Appearance Urine pH Ur Specific [place] Urine Protein Urine Glucose (UA) Urine Ketones Urine Blood Urine Nitrite Ur Leukocyte Esterase Urine RBC Urine WBC Ur Squamous Epith Cells Urine Bacteria Hyaline Casts Salicylates Urine Opiates Screen Ur Buprenorphine Scrn Ur Oxycodone Screen Urine Methadone Screen Urine Fentanyl Screen Acetaminophen Ur Barbiturates Screen Ur Phencyclidine Scrn Ur Amphetamines Screen U Benzodiazepines Scrn Urine Cocaine Screen U Marijuana (THC) Screen Ethyl Alcohol INDERJIT Screen INDERJIT Titer INDERJIT Titer 2 INDERJIT Titer 3 INDERJIT Pattern INDERJIT Pattern 2 INDERJIT Pattern 3 RPR Titer RPR Monoscreen HIV 1&2 Ab/P24 Ag 4thGn Influenza Type A (PCR) Influenza Type B (PCR) RSV RNA Qual (PCR) SARS-CoV-2 RNA (RT-PCR) 12/25/24 09:08 WBC RBC Hgb Hct MCV MCH MCHC RDW Plt Count MPV Immature Gran % (Auto) Neut % (Auto) Lymph % (Auto) Hendry % (Auto) Eos % (Auto) Baso % (Auto) Lymph # (Auto) Hendry # (Auto) Eos # (Auto) Baso # (Auto) Abs Immat Gran (auto) Absolute Neuts (auto) Absolute Nucleated RBC Nucleated RBC % (auto) Neutrophils % (Manual) Band Neutrophils % Lymphocytes % (Manual) Atypical Lymphs % (Man) Monocytes % (Manual) Abs Neuts (Manual) Lymphocytes # (Manual) Atyp Lymphs # (Manual) Monocytes # (Manual) Smudge Cells Platelet Estimate Plt Morphology Comment RBC Morphology Smear Tech's Comments Smear Path Review ESR Sodium Potassium Chloride Carbon Dioxide Anion Gap BUN Creatinine Estim Creat Clear Calc Estimated GFR Random Glucose Estimat Average Glucose 105 Hemoglobin A1c % 5.3 Lactic Acid Calcium Total Bilirubin AST ALT Alkaline Phosphatase C-Reactive Protein Total Protein Albumin Triglycerides 48 Cholesterol 109 LDL Cholesterol, Calc 73 HDL Cholesterol 27 L TSH 2.82 Urine Color Urine Appearance Urine pH Ur Specific [place] Urine Protein Urine Glucose (UA) Urine Ketones Urine Blood Urine Nitrite Ur Leukocyte Esterase Urine RBC Urine WBC Ur Squamous Epith Cells Urine Bacteria Hyaline Casts Salicylates Urine Opiates Screen Ur Buprenorphine Scrn Ur Oxycodone Screen Urine Methadone Screen Urine Fentanyl Screen Acetaminophen Ur Barbiturates Screen Ur Phencyclidine Scrn Ur Amphetamines Screen U Benzodiazepines Scrn Urine Cocaine Screen U Marijuana (THC) Screen Ethyl Alcohol INDERJIT Screen INDERJIT Titer INDERJIT Titer 2 INDERJIT Titer 3 INDERJIT Pattern INDERJIT Pattern 2 INDERJIT Pattern 3 RPR Titer RPR Monoscreen HIV 1&2 Ab/P24 Ag 4thGn Influenza Type A (PCR) Influenza Type B (PCR) RSV RNA Qual (PCR) SARS-CoV-2 RNA (RT-PCR) 12/24/24 07:53 Blood - Venous Blood Culture - Preliminary No growth after 48 hours. 12/24/24 07:52 Blood - Venous Blood Culture - Preliminary No growth after 48 hours. 12/22/24 19:56 Urine clean catch - Clean Catch Midstream Urine Culture - Final Strep agalactiae (Grp B) Imaging Diagnostic Imaging Impressions Chest X-Ray 12/24/24 07:30 IMPRESSION: Pneumonia, right upper lung lobe. Recommend follow-up until resolution, underlying lesion/malignancy cannot be excluded. Electronically signed by: Shon Worley MD 12/24/2024 08:04 AM EDT DS: Summary Hospital Course Hospital Course: 49 yo WM homeless man with opiate and alcohol abuse- recent opiate and fentanyl on top of methadone- as well as alcohol use- has had inc paranoid ideation on presentation , weight loss, never had hx of PI prior- he has had seizures from alcohol withdrawal- Hx of lymphocytosis- worked up in past- no finding no prior psychiatric hospitalizations, Does feel anxious and sweaty and nerves - seems to be responding to ciwa with 8 got ativan 1mg with effect of sedation pt was sleeping earlier when I came to see him. He said he feared he was going to , didn't know he had pneumonia. He has had trouble sleeping even when he had a safe space to lie down, energy level has been ok, decreased eating with weigh tloss- (on eats 2-3 days due to access to food) 12/27 Patient reports that depression and anxiety are both a little better; he was started on mirtazapine this weekend and says he thinks it is helping. Patient also thinks that withdrawal is much less. Initially wanted methadone increased but agrees to wait since he is still scoring though minimally, on CIWA. Discussed aftercare. Patient wants to remain on Methadone and maybe go up but dose not want to go to a program or other help w/substance abuse treatment; instead patient wants to work on sobriety on his own and with his brother whom he says is waiting for him at a hotel. 12/28 pt up and about, dressed and in the milue. He says he's feeling much better, w/drawal over and wants to discuss discharge. Mood is good' and no SI at all. He does not want any further substance abuse treatment. His plan is to see his daughter who was visiting for the week. Patient is at baseline. Not in imminent risk for harm to self or others and appropriate to return to the community for treatment Time spent discussing smoking cessation with patient: 3 to 10 minutes Status at Discharge Functional status at discharge: independent ambulation Overall status at discharge: patient is back to baseline Time Spent with Patient Time attestation: Total time managing care of this patient today ____ minutes. Time spent: Less than 30 minutes Discharge Plan Discharge Anticipated Discharge Date/Time: 12/29/24 11:03 Patient Disposition: Intermediate Discharge Diagnosis: MDD, recurrent, moderate in full remission Referrals: [facility] [employer] ([facility]) Meeta Butler (therapy) [Other] - 01/05/25 10:00 am (Hospital discharge appointment for therapy Appointment in person at [facility].) [facility]): Savannah Ardon (psych) [Other] - 02/09/25 9:30 am (Hospital discharge appointment for psychiatric medication management Appointment in person at [facility] ) Physician,Unknown J [Primary Care Provider] - 1 Week Discharge Medications: New hydroxyzine HCl 25 mg Tablet 25 mg PO Q6H PRN (Reason: mild anxiety) 30 Days Qty: 60 0RF mirtazapine 7.5 mg Tablet 7.5 mg PO BEDTIME 30 Days Qty: 30 0RF trazodone 50 mg Tablet 50 mg PO BEDTIME PRN (Reason: Insomnia) 30 Days Qty: 30 0RF Continued methadone 10 mg/mL Concentrate 90 mg PO DAILY Rx Instructions: confirmed with [facility] Discharge Orders: Discharge Order (Routine); Ordered 12/29/24 Ordered By: Claus Donovan Diet: Regular diet Activity on Discharge: As tolerated Stand Alone Forms: Patient Portal Discharge page, Community Support Print Language: [place] Care Plan Goals: Maintain mood and safe behaviors Take medications as prescribed Continue to pursue sobriety Practice coping skills Continue with outpatient providers and reach out to them as needed Health Concerns: Mood stability and behaviors Sobriety Pneumonia: complete course of antibiotics Plan of Treatment: Follow up with your PCP, psychiatric provider and other outpatient providers regarding above concerns Take medications as prescribed Assessment: Risk assessment at time of discharge:? Patient was interviewed prior to discharge and found to be fully oriented and without any SI or HI. Patient has improved insight and judgment and wants to continue treatment. Patient is not in imminent risk of harm to self or others and has a safety plan that includes presenting to the closest ER or calling 911 if feeling unsafe.? Patient has been observed closely by nursing and unit staff throughout admission; patient has not engaged in any behaviors that suggest dangerousness to self or others and has demonstrated appropriate behaviors and impulse control Discharge Date/Time: 12/29/24 11:45
[2024-12-29] MEDS: Folic Acid 1 MG TABLET PO (09:01)
[2024-12-29] MEDS: Thiamine HCL 100 MG TABLET PO (09:01)
[2024-12-29] MEDS: hydrOXYzine HCL 25 MG TABLET PO (09:01)
[2024-12-29] MEDS: Amoxicillin/Potassium Clav 875 MG TABLET PO (09:01)
[2024-12-29] MEDS: Doxycycline Monohydrate 100 MG CAPSULE PO (09:01)
[2024-12-29] MEDS: Naloxone HCl Nasal TAKE HOME 4 MG SPRAY 8 MG NOSTRILALT (09:02)
[2024-12-29 11:33] LABS: Anti Nuclear Antibody Screen NEGATIVE (NEGATIVE)
== END 2024-12-29 11:45 | disposition home or self-care (01) | DRG 751 ==
LOC: HO.ED 12-24 12:40 → HO.PM5 12-24 13:44
PROVIDERS: Physician Assistant; Physician Assistant Medical; Social Worker; Admitting Provider Psychiatry & Neurology Psychiatry; Emergency Provider Emergency Medicine; Visit Provider Psychiatry & Neurology Psychiatry
DX: F33.2 Major depressive disorder, recurrent severe without psychotic features (principal); J18.9 Pneumonia, unspecified organism; R45.850 Homicidal ideations; F10.10 Alcohol abuse, uncomplicated; F11.20 Opioid dependence, uncomplicated; F17.210 Nicotine dependence, cigarettes, uncomplicated; Z20.822 Contact with and (suspected) exposure to COVID-19; Z59.02 Unsheltered homelessness; Z71.6 Tobacco abuse counseling; Z79.899 Other long term (current) drug therapy
CPT/HCPCS: 0241U; 36415; 71045; 80053; 80061; 80143; 80179; 80307; 81001; 83036; 83605; 84443; 85007; 85025; 85027; 85652; 86038; 86140; 86308; 86592; 87040; 87086; 87147; 87389; 90656; 93005; 99285; J0456; J0696; S9485

== ENCOUNTER → 2024-12-22 15:47 | Outpatient (BNV) | payer OTHER, SELFPAY | PROVIDERS: Emergency Provider Emergency Medicine; Visit Provider Internal Medicine Cardiovascular Disease | DX: D72.829 Elevated white blood cell count, unspecified (principal); J18.9 Pneumonia, unspecified organism | CPT/HCPCS: 93010 ==

== ENCOUNTER → 2024-12-24 07:30 | Outpatient (BNV) | payer OTHER, SELFPAY | PROVIDERS: Emergency Provider Emergency Medicine; Visit Provider Radiology Diagnostic Radiology | DX: J18.1 Lobar pneumonia, unspecified organism (principal) | CPT/HCPCS: 71045 ==

== ENCOUNTER → 2024-12-24 13:35 | Outpatient (BNV) | payer OTHER, SELFPAY | PROVIDERS: Admitting Provider Psychiatry & Neurology Psychiatry; Emergency Provider Emergency Medicine; Visit Provider Psychiatry & Neurology Psychiatry | DX: F33.2 Major depressive disorder, recurrent severe without psychotic features (principal); F10.90 Alcohol use, unspecified, uncomplicated; F11.90 Opioid use, unspecified, uncomplicated; J18.9 Pneumonia, unspecified organism; Z59.00 Homelessness unspecified | CPT/HCPCS: 99231; 99232; 99238 ==

== ENCOUNTER 2024-12-31 23:59 | Emergency (ER) | payer OTHER, SELFPAY ==
[2025-01-01 00:01] VITALS: BP 126/81; PULSE 77; RESP 18; TEMP 36.6; O2SAT 100; BMI 22.0
[2025-01-01 00:19] LABS: Basophils Absolute Auto 0.1 X10*3/uL (0.0-0.2); Basophils Percent Auto 0.3 % (0-2); Eosinophils Absolute Auto 0.1 X10*3/uL (0.0-0.4); Eosinophils Percent Auto 0.4 % (0-4); Hematocrit 34.5 % (42.0-52.0); Hemoglobin 10.9 g/dl (14.0-18.0); Imm Gran Abs Auto 0.07 X10*3/uL (0.00-0.03); Imm Gran Pct Auto 0.3 % (0.0-0.4); Lymphocytes Absolute Auto 20.4 X10*3/uL (1.2-4.9); Lymphocytes Percent Auto 74.6 % (20-40); MANUAL DIFF FLAG SCAN; Mean Corpuscular HGB Conc 31.6 g/dl (31.0-36.0); Mean Corpuscular Hemoglobin 28.5 pg (27.0-33.0); Mean Corpuscular Volume 90.1 fL (80.0-98.0); Monocytes Absolute Auto 0.6 X10*3/uL (0.1-1.2); Monocytes Percent Auto 2.3 % (2-11); Neutrophils Percent Auto 22.1 % (45-73); Platelet Count 316 X10*3/uL (160-400); Red Blood Count 3.83 X10*6/uL (4.60-5.80); Red Cell Distribution Width 13.8 % (11.0-16.0); SCAN SMEAR FLAG 1; White Blood Count 27.3 X10*3/uL (4.8-10.8)
[2025-01-01 00:35] LABS: Alanine Aminotransferase 21 U/L (0-40); Albumin Level 3.9 g/dL (3.5-5.0); Alkaline Phosphatase 79 U/L (39-117); Anion Gap 10 (12-20); Aspartate Amino Transferase 24 U/L (5-37); Bilirubin Total 0.3 mg/dL (0.0-1.0); Blood Urea Nitrogen 26 mg/dL (9-16); Carbon Dioxide 26 mmol/L (22-29); Chloride 108 mmol/L (96-108); Creatinine Clr Calc Pharmacy 88.3; Estimated Glomerular Filt Rate > 60; Ethanol < 10 mg/dL; Glucose Random 82 mg/dL (60-115); Potassium 4.2 mmol/L (3.3-5.1); Sodium 140 mmol/L (135-145); Total Protein 7.2 g/dL (6.5-8.0)
[2025-01-01 00:42] LABS: Acetaminophen LAB < 3 mcg/mL (<30); SLIDE REVIEW VERIFIED; Salicylate < 5.0 mg/dL (15-30)
--- NOTE | 2025-01-01 00:58 | ED_ITS ---
HPI - Psych General Chief Complaint: Psychiatric Symptoms Stated Complaint: Mental Health Crisis Time Seen by Provider: 01/01/25 00:28 Source: patient Mode of arrival: ambulatory Limitations: no limitations History of Present Illness ED Provider: Dr. Poornima Nova HPI Narrative: Patient comes to the emergency room stating that he feels paranoid, homicidal with nonspecific, states that he feels unsafe. Patient was discharged from this hospital 2 days ago. 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 until a few hours ago, his and picked them up for him and he has not had any of his doses yet Related Data Home Medications ?Medication ?Instructions ?Recorded ?Confirmed methadone 10 mg/mL oral concentrate 90 mg PO DAILY 12/22/24 01/01/25 Previous Rx's ?Medication ?Instructions ?Recorded hydroxyzine HCl 25 mg tablet 25 mg PO Q6H PRN mild anxiety 30 12/29/24 days #60 tabs mirtazapine 7.5 mg tablet 7.5 mg PO BEDTIME 30 days #30 tabs 12/29/24 trazodone 50 mg tablet 50 mg PO BEDTIME PRN Insomnia 30 12/29/24 days #30 tabs Allergies Allergy/AdvReac Type Severity Reaction Status Date / Time No Known Allergies Allergy Mild N/A Verified 01/01/25 00:05 Review of Systems 2 Review of Systems: Constitutional : No Weight loss, No Fever, No Chills, No Night Sweats, No Fatigue, No Malaise ENT/Mouth : No Hearing loss, No Ear Pain, No Nasal Congestion, No Sinus Pain, No Hoarseness, No sore throat, No Rhinorrhea, No Swallowing Difficulty Eyes: No Eye Pain, No Swelling, No Redness, No Foreign Body, No Discharge, No Vision Changes Cardiovascular : No Chest Pain, No SOB, No Dyspnea on Exertion, No Orthopnea, No Edema, No Palpitations Respiratory : No Cough, No Sputum, No Wheezing, No Smoke Exposure, No Dyspnea Gastrointestinal : No Nausea, No Vomiting, No Diarrhea, No Constipation, No abdominal Pain, No Hematochezia, No Melena Genitourinary : no irregular bleeding, No Dysuria, No Urinary Frequency, No Hematuria, No Urinary Incontinence, No Urgency, No Flank Pain, No Urinary Flow Changes, No Hesitancy Musculoskeletal : No joint pain, No Myalgias, No Joint Swelling Skin : No Skin Lesions, No rash Neuro : No Weakness, No Numbness, No Paresthesias, No Loss of Consciousness, No Dizziness, No Headache Psych : Complaining of anxiety, depression, feels unsafe, admits to polysubstance abuse Heme/Lymph: No Bruising, No Bleeding,No Lymphadenopathy Endocrine : No Polyuria, No Polydipsia, No Temperature Intolerance PMFSH Past Medical History Medical History Homeless Opioid use disorder Alcohol use disorder MDD (major depressive disorder), recurrent severe, without psychosis History of wrist sprain Surgical History History of appendectomy History of tonsillectomy Social History Social History Household Members: None Housing: Homeless Do you presently have visiting nurse or other home services: No Alcohol intake: current Alcohol type: beer and hard liquor Patient Tobacco Use Status: Current everyday Tobacco user Tobacco use type: Cigarette Cigarette Packs Per Day: 1 Cigarettes Per Day: 20.0 Smoked in Last 30 Days: Yes e-Cigarette/Vaping Use: Currently Using Second Hand Smoke Exposure: Yes Use of substances other than those prescribed or required for medical reasons: Yes Substance Use Type: Crack/Cocaine and Heroin Last Used Substance: Just Prior to Admission Advance Directives: No Advance Directives Information Provided: Yes Do you have a plan to hurt others: No Plan service: No Sexual orientation: Straight/Heterosexual Physical Exam 2 Vital Signs: Vital Signs: Last Vital Signs Temp 97.8 F 01/01/25 00:01 Pulse 77 01/01/25 00:01 Resp 18 01/01/25 00:01 BP 126/81 01/01/25 00:01 Pulse Ox 100 01/01/25 00:01 O2 Del Method Room Air 01/01/25 00:01 BMI result Body Mass Index 22.0 Const: Other: Appearance: Alert. Oriented X3. No acute distress. Eyes: Pupils equal, round and reactive to light. ENT: Pharynx normal. Neck: Normal inspection. Neck supple. No lymph nodes noted. No crepitus CVS: Normal heart rate and rhythm. Pulses normal. Normal S1 and S2 Respiratory: No respiratory distress. Breath sounds normal. No Wheezing. No rales Abdomen: Soft and nontender. No rigidity. No distention. Skin: Skin warm and dry. Normal skin color. Normal skin turgor. Extremities: No lower extremity edema. No Lacerations. No Rash Neuro: Oriented X 3. No motor deficit. No sensory deficit. Moving all extremities. No slurred speech. CN 2 through 12 grossly intact Psych: calm, cooperative, normal affect Course Course Course Narrative: All of patient's labs pending Care team consult pending Physician observation started at 01:00 Medications Administered Discontinued Medications Generic Name Dose Route Start Last Admin Trade Name Guy PRN Reason Stop Dose Admin Methadone HCl 90 mg 01/01/25 09:01 01/01/25 09:23 Methadone Hcl 20 Mg/2 Ml Oral.Conc PO 01/01/25 09:02 90 mg ONCE ONE Administration Medical Decision Making Medical Decision Making [facility] Narrative: My interpretation of labs: Patient is chronically anemic, labs at baseline, chemistry at baseline, normal LFTs, negative ETOH patient evaluated by crisis team on January 01. Okay with discharge patient is seen by substance abuse development coach. Will refer for additional detox. In stable condition. Currently not suicidal not homicidal. Differential Diagnosis Differential Diagnoses: The differential diagnosis associated with the presentation includes (Anxiety, depression, homeless, polysubstance abuse) Admission/Observation Consideration of admission/observation: Escalation of care including admission/observation considered (Patient is under physician observation waiting to be seen by the care team to determine patient's disposition) Lab Data [facility] Lab Attestation statement: I reviewed the patient's lab results. 01/01/25 00:11 01/01/25 00:11 Labs: Lab Results 01/01/25 01/01/25 Range/Units 00:11 01:17 WBC 27.3 H (4.8-10.8) X10*3/uL RBC 3.83 L (4.60-5.80) X10*6/uL Hgb 10.9 L (14.0-18.0) g/dl Hct 34.5 L (42.0-52.0) % MCV 90.1 (80.0-98.0) fL MCH 28.5 (27.0-33.0) pg MCHC 31.6 (31.0-36.0) g/dl RDW 13.8 (11.0-16.0) % Plt Count 316 (160-400) X10*3/uL MPV 10.0 (9.4-12.4) fL Immature Gran % (Auto) 0.3 (0.0-0.4) % Neut % (Auto) 22.1 L (45-73) % Lymph % (Auto) 74.6 H (20-40) % [place] % (Auto) 2.3 (2-11) % Eos % (Auto) 0.4 (0-4) % Baso % (Auto) 0.3 (0-2) % Lymph # (Auto) 20.4 H (1.2-4.9) X10*3/uL [place] # (Auto) 0.6 (0.1-1.2) X10*3/uL Eos # (Auto) 0.1 (0.0-0.4) X10*3/uL Baso # (Auto) 0.1 (0.0-0.2) X10*3/uL Abs Immat Gran (auto) 0.07 H (0.00-0.03) X10*3/uL Absolute Neuts (auto) 6.0 (2.0-8.3) x10*3/uL Absolute Nucleated RBC 0.000 (0.0-0.012) X10*3/uL Nucleated RBC % (auto) 0.0 (0.0-0.2) /100WBC Smear Tech's Comments VERIFIED Sodium 140 (135-145) mmol/L Potassium 4.2 (3.3-5.1) mmol/L Chloride 108 (96-108) mmol/L Carbon Dioxide 26 (22-29) mmol/L Anion Gap 10 L (12-20) BUN 26 H (9-16) mg/dL Creatinine 0.92 (0.5-1.4) mg/dL Estim Creat Clear Calc 88.3 Estimated GFR > 60 Random Glucose 82 (60-115) mg/dL Calcium 9.0 (8.4-10.2) mg/dL Total Bilirubin 0.3 (0.0-1.0) mg/dL AST 24 (5-37) U/L ALT 21 (0-40) U/L Alkaline Phosphatase 79 (39-117) U/L Total Protein 7.2 (6.5-8.0) g/dL Albumin 3.9 (3.5-5.0) g/dL Urine Color Yellow Urine Appearance Clear Urine pH 5.0 (5.0-9.0) Ur Specific [place] >= 1.030 H (1.005-1.025) Urine Protein Negative (Neg-Trace) mg/dL Urine Glucose (UA) Negative (Negative) mg/dL Urine Ketones Negative (Negative) mg/dL Urine Blood Negative (Negative) Urine Nitrite Negative (Negative) Ur Leukocyte Esterase Negative (Negative) Urine RBC 0-2 (0-2) /HPF Urine WBC 6-10 H (0-5) /HPF Ur Squamous Epith Cells 3-5 (0-2) /HPF Urine Bacteria None Seen (None Seen) Hyaline Casts 0-2 (0-2) /LPF Salicylates < 5.0 L (15-30) mg/dL Urine Opiates Screen POSITIVE H (Not Detect) Ur Buprenorphine Scrn Not Detected (Not Detect) ng/mL Ur Oxycodone Screen Not Detected (Not Detect) ng/mL Urine Methadone Screen Positive H (Not Detect) ng/mL Urine Fentanyl Screen POSITIVE H (Not Detect) Acetaminophen < 3 (<30) mcg/mL Ur Barbiturates Screen Not Detected (Not Detect) Ur Phencyclidine Scrn Not Detected (Not Detect) Ur Amphetamines Screen Not Detected (Not Detect) U Benzodiazepines Scrn Not Detected (Not Detect) Urine Cocaine Screen POSITIVE H (Not Detect) U Marijuana (THC) Screen POSITIVE H (Not Detect) Ethyl Alcohol < 10 mg/dL Critical Care Time Critical Care Time Critical Care Time: Yes Total Critical Care Time: 35 Attestation: I have personally provided critical care time. Time includes review of lab data, radiology results, discussion with consultants, and monitoring for potential decompensation. Intervention performed as documented. Discharge Plan Discharge Clinical Impression: Anxiety and depression, Polysubstance abuse Patient Disposition: Home, Self-Care Prescriptions: No Action methadone 10 mg/mL Concentrate 90 mg PO DAILY Rx Instructions: confirmed with [facility] hydroxyzine HCl 25 mg Tablet 25 mg PO Q6H PRN (Reason: mild anxiety) 30 Days Qty: 60 0RF mirtazapine 7.5 mg Tablet 7.5 mg PO BEDTIME 30 Days Qty: 30 0RF trazodone 50 mg Tablet 50 mg PO BEDTIME PRN (Reason: Insomnia) 30 Days Qty: 30 0RF Referrals: Jania Vo MD [Primary Care Provider] - ( Please go to detox) Interventions: [place]-Suicide Risk Severity Scale Last Done: 01/01/25 00:46 Print Language: Faroese
--- NOTE | 2025-01-01 01:25 | PC.NURSE ---
pt resting comfortably, calm and cooperative, watching TV, food and water provided per request. no apparent distress noted at this time. pt denies SI, reports he is paranoid and has some HI, scared he will hurt someone[place] them.
[2025-01-01 01:26] LABS: Appearance Urine Clear; Color Urine Yellow; Glucose Urine UA Negative (Negative); Leukocyte Esterase Urine Negative (Negative); Nitrite Urine Negative (Negative); Specific Gravity - Urine >= 1.030 (1.005-1.025); Urine Blood Negative (Negative); Urine Ketones Negative (Negative); Urine Protein Negative (Neg-Trace)
[2025-01-01 01:28] LABS: Bacteria Urine None Seen (None Seen); Hyaline Casts Urine 0-2 /LPF (0-2); RBC Urine 0-2 /HPF (0-2); UACC Culture Trigger YES
[2025-01-01 01:40] LABS: Amphetamine Screen Urine Not Detected (Not Detect); Barbiturates, Urine Not Detected (Not Detect); Benzodiazepines Screen Urine Not Detected (Not Detect); Buprenorphine Scr Not Detected (Not Detect); Cannabinoid Screen Urine POSITIVE (Not Detect); Cocaine Screen Urine POSITIVE (Not Detect); Fentanyl, urine POSITIVE (Not Detect); Methadone Screen, Urine Positive (Not Detect); Opiate Screen Urine POSITIVE (Not Detect); Oxycodone Screen Urine Not Detected (Not Detect); Phencyclidine Screen Urine Not Detected (Not Detect)
--- NOTE | 2025-01-01 07:59 | PC.NURSE ---
Assumed care of patient at 0645, patient appears to be sleeping, respirations even and unlabored, no apparent distress is noted at this time. Continue plan of care for CARE team eval today
--- NOTE | 2025-01-01 08:14 | HE.PHANOTE ---
RE: methadone Last dose 90mg on 12/29 @ [facility], regularly goes to [facility]
--- NOTE | 2025-01-01 09:14 | MHC.CARE ---
Pt does not meet the criteria for IPLOC and does not present as an imminent risk. Pt is referred to the recovery team for detox placement.
[2025-01-01] MEDS: methADONE HCl 20 MG/2 ML ORAL.CONC 90 MG PO (09:23)
--- NOTE | 2025-01-01 11:22 | MHC.RECOVRN ---
Met with Lukasz to discuss recent recurrence on substances. Pt is ATS seeking - agreed on referrals to be sent on his behalf. Referrals have been sent to the following facilities for review: 1. [facility] 2. [facility] 3. [facility] 4. [facility]
--- NOTE | 2025-01-01 14:29 | MHC.RECOVRN ---
Pt accepted at [facility] in [place] for ATS. He is expected there tricia. Care team RN to call [place] for patient when he is ready to go.
[2025-01-01 15:27] VITALS: BP 126/80; PULSE 77; RESP 18; TEMP 36.6; O2SAT 100
--- NOTE | 2025-01-01 15:30 | PC.NURSE ---
Upon discharge, patient verbalized that he does not want to go detox in [place], he wants to go to [facility]. Dr. Cole consulted. Patient either goes to [facility] or discharges
== END 2025-01-01 15:30 | disposition home or self-care (01) ==
PROVIDERS: Emergency Provider Emergency Medicine; PCP Internal Medicine
DX: F41.9 Anxiety disorder, unspecified (principal); F33.2 Major depressive disorder, recurrent severe without psychotic features; F19.10 Other psychoactive substance abuse, uncomplicated; F17.210 Nicotine dependence, cigarettes, uncomplicated; Z59.00 Homelessness unspecified; Z79.899 Other long term (current) drug therapy
CPT/HCPCS: 36415; 80053; 80143; 80179; 80307; 81001; 85025; 87086; 99284; S9485